=== PATIENT | male | born 1975 | race Caucasian/White ===

== ENCOUNTER 2018-03-28 12:09 | Inpatient (IN) | payer MEDICAID ==
[~2018-03-28] VITALS: Ht 165.1 cm; Wt 86.2 kg
[2018-03-28 12:17] VITALS: BP 133/65
--- NOTE | 2018-03-28 12:36 | NUR ---
EKG DONE, OK FOR PT TO BE IN LOBBY FOR ROOM
[2018-03-28 13:27] LABS: ANION GAP 11.3 (8-16); CARBON DIOXIDE 24.7 mmol/L (21-32); CREATININE 0.8 mg/dL (0.7-1.3)
[2018-03-28 13:28] LABS: BASOPHILS # (AUTO) 0.1 K/uL (0.00-0.22); BASOPHILS % (AUTO) 1.1 % (0.0-2.0); EOSINOPHILS # (AUTO) 0.1 K/uL (0-0.4); EOSINOPHILS % (AUTO) 1.8 % (0.0-4.0); LYMPHOCYTES # (AUTO) 1.9 K/uL (2.0-11.5); MEAN CORPUSCULAR HEMOGLOBIN 23 pg (27-31); MEAN CORPUSCULAR HGB CONC 32 g/dL (33-37); MEAN CORPUSCULAR VOLUME 72.4 fL (80-94); MONOCYTES # (AUTO) 0.9 K/uL (0.8-1.0); NEUTROPHILS # (AUTO) 3.3 K/uL (1.8-7.7); NEUTROPHILS % (AUTO) 53.1 % (42.2-75.2); PLATELET COUNT (AUTO) 108 K/uL (140-450); RED BLOOD CELL COUNT(AUTO) 1.91 MIL/uL (4.20-6.10); RED CELL DISTRIBUTION WIDTH 23.9 % (11.6-13.7)
--- NOTE | 2018-03-28 13:40 | NUR ---
PT. CAME INTO THE ED W C/O DIAHRRHEA X 3 DAYS, AND SUDDEN ONSET OF CHEST PAIN TODAY UPON WALKING THAT CEASED WHEN HE GOT TO THE HOSPITAL. PT. IS AAOX4, RR EVEN AND UNLABORED. DENIES N/V/D. DENIES SOB, DENIES CHEST PAIN AT THIS TIME.PT. STATES DIAHRRHEA X 3 DAYS. NO PAIN AT THIS TIME,PT. ON MONITOR. DENIES ALLERGIES. ER MD NOTIFIED. WILL CONTINUE TO MONITOR.
[2018-03-28 13:42] LABS: PROTHROMBIN TIME 13.3 secs (10.8-13.4)
--- NOTE | 2018-03-28 13:50 | NUR ---
LAB CALLED , SPOKE TO RANJIT Middleton WHO REPORTED CRITICAL LAB OF HEMOGLOBIN 4.[address] CHRISTOPHER NOTIFIED. AWAITING ORDERS.
[2018-03-28 13:53] LABS: HEMATOCRIT 13.8 % (36-52); HEMOGLOBIN 4.4 g/dL (12.0-18.0); WHITE BLOOD COUNT (AUTO) 6.2 K/uL (4.8-10.8)
[2018-03-28 14:41] LABS: APPEARANCE,URINE CLEAR (CLEAR); BILIRUBIN,URINE NEGATIVE (NEGATIVE); BLOOD, URINE 1+ (NEGATIVE); COLOR,URINE YELLOW (YELLOW); LEUKOCYTE ESTERASE ,URINE NEGATIVE (NEGATIVE); NITRITE, URINE NEGATIVE (NEGATIVE); UGLUCOSE NEGATIVE (NEGATIVE)
[2018-03-28 14:50] LABS: RBC,URINE 3-10 (FEW) /HPF (0-5); WBC,URINE 0-5 (RARE) /HPF (0-5)
[2018-03-28 14:54] LABS: BARBITURATE, URINE NEG. ng/ml (NEG <=200); BENZODIAZEPINE, URINE NEG. ng/mL (NEG <=200); CANNABINOID, URINE NEG. ng/mL (NEG <=50); COCAINE, URINE NEG. ng/mL (NEG <=300); OPIATE, URINE NEG. ng/mL (NEG <=2000); PHENCYCLIDINE SCREEN,URINE NEG. ng/mL (NEG <=25)
[2018-03-28] MEDS ORDERED: DOCUSATE SODIUM 100 MG GELCAP PO PRN (14:55)
[2018-03-28] MEDS ORDERED: ACETAMINOPHEN 325 MG TAB PO PRN (14:55)
[2018-03-28] MEDS ORDERED: ONDANSETRON 4 MG/2 ML VIAL IM/IVP PRN (14:55)
[2018-03-28] MEDS ORDERED: HYDROcodone/APAP 7.5/325 MG 1 TAB PO PRN (14:55)
--- NOTE | 2018-03-28 14:57 | NUR ---
PT. IN BED RESTING COMFORTABLY, RR EVEN AND UNLABORED. WILL CONTINUE TO MONITOR.
[2018-03-28] MEDS: NACL 0.9% 1,000 ML IV SCH ×2 (15:30→23:37)
--- NOTE | 2018-03-28 15:30 | NUR ---
PT IS AWAKE AND LYING ON THE BED, STARTED ON NACL AT 80ML/HR. NO SIGN OF DISTRESS NOTED AND WILL CONTINUE TO MONITOR.
[2018-03-28 15:35] VITALS: BP 112/54
--- NOTE | 2018-03-28 15:35 | NUR ---
Patient will be admitted to care of DR. GUTIERREZ . Admited to MED SURG . Will go to room 112B . Belongings list completed. Report to MARIA ISABEL DENNY .
--- NOTE | 2018-03-28 15:35 | NUR ---
RECEIVED PT VIA WHEELCHAIR, FROM ER NURSE, KELLY, PT IS AWAKE, ALERT, ORIENTEDX4 WITH AN IV SALINE LOCK ON THE RT AC G.18, INTACT. MRSA SWAB DONE AND VITAL SIGNS TAKEN AND IS STABLE. SIDE RAILS ARE UP AND CALL LIGHT WITHIN REACH. CARE PLAN DISCUSSED AND PT VERBALIZED UNDERSTANDING. SKIN IS INTACT. NO SIGN OF DISTRESS NOTED. WILL CONTINUE TO MONITOR.
[2018-03-28 15:54] LABS: CHOL/HDL RATIO 1.8 (1-4.5); MAGNESIUM 1.5 mg/dL (1.8-2.4); PHOSPHORUS 4.2 mg/dL (2.5-4.9); THYROID STIMULATING HORMONE 1.73 uIU/mL (0.34-3.74)
[2018-03-28] MEDS ORDERED: LORazepam 1 MG TAB PO SCH (16:00)
[2018-03-28] MEDS ORDERED: MAG SULF 2000 MG/WATER PREMIX 50 ML IV SCH (16:00)
[2018-03-28] MEDS ORDERED: MULTIVITAMIN-12 10 ML, THIAMINE 100 MG, FOLIC ACID 5 MG in NACL 0.9% 1,000 ML IV SCH (16:00)
[2018-03-28] MEDS ORDERED: RIFAXIMIN 550 MG TAB PO SCH (16:15)
[2018-03-28] MEDS: SODIUM FERRIC GLUCONATE 125 MG in NACL 0.9% 100 ML IV SCH (16:49)
--- NOTE | 2018-03-28 16:49 | NUR ---
PT IS AWAKE AND LYING ON THE BED, MEDICATION STARTED VIA IVPB, PT TOLERATED IT AND NO SIGN OF DISTRESS NOTED. WILL CONTINUE TO MONITOR.
--- NOTE | 2018-03-28 17:35 | NUR ---
PT IS AWAKE AND MEDICATIONS GIVEN VIA IV LINE AT LEFT HAND G. 22, INTACT AND INFUSING WELL. NO SIGN OF DISTRESS NOTED AND WILL CONTINUE TO MONITOR.
--- NOTE | 2018-03-28 18:42 | NUR ---
PT IS AWAKE AND LYING ON THE BED, INITIAL VITAL SIGNS TAKEN PRIOR TO STARTING TRANSFUSION, AND IS STABLE. WILL CONTINUE TO MONITOR.
--- NOTE | 2018-03-28 19:10 | NUR ---
PT IS AWAKE AND BLOOD TRANSFUSION HAD STARTED ALREADY, FIRST 15 MINS VITAL SIGNS TAKEN AND IS STABLE. NO SIGN OF DISTRESS NOTED ON THE PT. PT VERBALIZED THAT HE DOES NOT HAVE ANY PAIN. WILL CONTINUE TO MONITOR.
--- NOTE | 2018-03-28 19:40 | NUR ---
ENDORSED PT TO MASSIMO SHIFT NURSEFRANK FOR CONTINUITY OF CARE. PT HAS STILL A BLOOD TRANSFUSION ON GOING BUT NO SIGN OF DISTRESS NOTED. PT IS STABLE AT THIS TIME.
[2018-03-28 20:25] VITALS: BP 113/76
--- NOTE | 2018-03-28 20:50 | NUR ---
SEEN PT AWAKE, ALERT AND ORIENTED TAIWANESE-SPEAKING ONLY. FAMILY AT BEDSIDE. INITIAL ASSESSMENT DONE. BLOOD TRANSFUSION #1 INFUSING. VITAL SIGNS CHECKED. TEMP=99.9 EXTRA BLANKET REMOVED. WILL GIVE TYLENOL. PT DENIES ANY PAIN OR DISCOMFORT. SAFETY ENSURED. CALL LIGHT W/IN REACH. WILL CONTINUE TO MONITOR.
[2018-03-28] MEDS: RIFAXIMIN 550 MG TAB PO SCH (20:51)
[2018-03-28] MEDS: LORazepam 1 MG TAB PO SCH (20:51)
--- NOTE | 2018-03-28 22:40 | NUR ---
FIRST UNIT OF PRBC FINISHED. VITAL SIGNS CHECKED. PT DENIES ANY ADVERSE REACTIONS LIKE SHORTNESS OF BREATH, ITCHING, CHEST PAIN, ABDOMINAL PAIN, ETC.
--- NOTE | 2018-03-28 23:07 | NUR ---
VITAL SIGNS CHECKED AND WITHIN NORMAL. SECOND UNIT OF PRBC CHECKED AND VERIFIED W/ ANOTHER NURSE.
--- NOTE | 2018-03-28 23:40 | NUR ---
SIDE RAILS PADDED FOR SEIZURE PRECAUTION. PT DENIES ANY ADVERSE REACTIONS. BLOOD INFUSING WELL. WILL CHECK VITAL SIGNS PER PROTOCOL.
--- NOTE | 2018-03-29 01:35 | NUR ---
PT SLEEPING SOUNDLY. SECOND UNIT OF BLOOD FINISHED. VITAL SIGNS CHECKED. NO ADVERSE REACTIONS OBSERVED. WILL CONTINUE TO MONITOR.
[2018-03-29 04:45] VITALS: BP 113/62
--- NOTE | 2018-03-29 04:45 | NUR ---
SEEN PT AWAKE. VITAL SIGNS CHECKED. PT DENIES ANY DISCOMFORT. SAFETY ENSURED.
[2018-03-29] MEDS: LORazepam 1 MG TAB PO SCH ×3 (04:50→20:21)
--- NOTE | 2018-03-29 05:30 | NUR ---
REPORT ENDORSED TO GRACE FOR CONTINUITY OF CARE.
--- NOTE | 2018-03-29 05:31 | NUR ---
RECEIVED REPORT FROM FLOWER NICOLAS FOR CONTINUITY OF CARE. PT IN STABLE CONDITION
[2018-03-29 06:19] LABS: HEPATITIS A ANTIBODY IGM Negative (Negative); HEPATITIS B CORE AB TOTAL Negative (Negative); HEPATITIS B SURFACE ANTIBODY Non Reactive (.); HEPATITIS B SURFACE ANTIGEN Negative (Negative)
[2018-03-29] MEDS: DEXT 5% / NACL 0.9% 500 ML IV SCH ×3 (07:10→20:07)
[2018-03-29 07:28] LABS: BASOPHILS % (AUTO) 0.8 % (0.0-2.0); EOSINOPHILS # (AUTO) 0.1 K/uL (0-0.4); EOSINOPHILS % (AUTO) 2.4 % (0.0-4.0); LYMPHOCYTES # (AUTO) 1.7 K/uL (2.0-11.5); LYMPHOCYTES % (AUTO) 31.8 % (20.5-51.1); MEAN CORPUSCULAR HEMOGLOBIN 25 pg (27-31); MEAN CORPUSCULAR HGB CONC 33 g/dL (33-37); MEAN CORPUSCULAR VOLUME 75.5 fL (80-94); MONOCYTES # (AUTO) 0.5 K/uL (0.8-1.0); PLATELET COUNT (AUTO) 105 K/uL (140-450); RED BLOOD CELL COUNT(AUTO) 2.44 MIL/uL (4.20-6.10); RED CELL DISTRIBUTION WIDTH 23.4 % (11.6-13.7); WHITE BLOOD COUNT (AUTO) 5.4 K/uL (4.8-10.8)
--- NOTE | 2018-03-29 07:28 | NUR ---
RECEIVED REPORT FROM NIGHTSHIFT NURSE AT BEDSIDE. PATIENT ASLEEP AT THIS TIME BUT AROUSABLE. PATIENT IS A BENGALI SPEAKER ONLY. PATIENT ALERT AND ORIENTED X3. NO DISTRESS NOTED. NO COMPLAINTS OF PAIN. PATIENT HAS AN IV NOTED ON HIS LEFT HAND 22G WITH NORMAL SALINE INFUSING AT 80 ML/HR. PATIENT HAS A LEFT AC 22G AND RIGHT AC 18G BOTH SALINE LOCK. UPDATED BOARD IN PATIENT'S ROOM. PUT CALL LIGHT WITHIN REACH OF PATIENT. LOWERED BED TO LOWEST SETTING. WILL CONTINUE TO MONITOR PATIENT.
--- NOTE | 2018-03-29 07:28 | NUR ---
REPORT GIVEN TO DAY NURSE FOR CONTINUITY OF CARE, PT IN STABLE CONDITION
[2018-03-29 07:33] LABS: ANION GAP 11.1 (8-16); CARBON DIOXIDE 23.6 mmol/L (21-32); CREATININE 0.7 mg/dL (0.7-1.3); POTASSIUM 3.7 mmol/L (3.5-5.1)
[2018-03-29 07:39] LABS: MAGNESIUM 1.7 mg/dL (1.8-2.4); PHOSPHORUS 3.6 mg/dL (2.5-4.9)
[2018-03-29 07:43] LABS: HEMATOCRIT 18.4 % (36-52)
[2018-03-29] MEDS: FOLIC ACID 1 MG TAB PO SCH (08:23)
[2018-03-29] MEDS: THIAMINE 100 MG TAB PO SCH (08:23)
[2018-03-29] MEDS: MULTIVITAMIN 1 TAB PO SCH (08:23)
[2018-03-29] MEDS: RIFAXIMIN 550 MG TAB PO SCH ×2 (08:24→20:20)
--- NOTE | 2018-03-29 08:24 | NUR ---
PATIENT TOOK AM MEDICATIONS. PATIENT TOLERATED WELL. WILL CONTINUE TO MONITOR PATIENT.
--- NOTE | 2018-03-29 08:27 | NUR ---
SWAPPED PATIENT'S IV BAG WITH 500 ML D5 NACL AT 80 ML/HR.
--- NOTE | 2018-03-29 08:50 | NUR ---
PATIENT UNDERSTANDS THAT HE CANNOT EAT. PATIENT IS PLACED ON NPO DIET.
--- NOTE | 2018-03-29 08:50 | NUR ---
PATIENT HAS BEEN SCREENED AND CATEGORIZED MODERATE NUTRITION RISK. PATIENT WILL BE SEEN WITHIN 3-5 DAYS OF ADMISSION. 03/31/18 04/02/[address]
[2018-03-29 09:16] LABS: T4 (THYROXINE) 6.4 ug/dL (4.5-12.0)
--- NOTE | 2018-03-29 10:10 | NUR ---
PATIENT RESTING IN BED. NO DISTRESS NOTED. WILL CONTINUE TO MONITOR PATIENT.
--- NOTE | 2018-03-29 10:58 | NUR ---
REPORTED LAB VALUES CALCIUM, MAGNESIUM, AND AMMONIA TO DR. KWOK. AWAITING ORDERS.
[2018-03-29] MEDS ORDERED: MAG SULF 2000 MG/WATER PREMIX 100 ML IV SCH (11:31)
--- NOTE | 2018-03-29 11:32 | NUR ---
USED QUALITY OFFICER DEBBIE TO EXPLAIN PATIENT'S PROCEDURE OF EGD DUE FOR TOMORROW. PATIENT INSPECTOR INSULATION #[id number].
[2018-03-29 12:34] LABS: FOLIC ACID 15.5 ng/mL (>3.0)
--- NOTE | 2018-03-29 12:59 | NUR ---
PATIENT RESTING AT THIS TIME. NO DISTRESS NOTED. WILL CONTINUE TO MONITOR PATIENT.
--- NOTE | 2018-03-29 14:20 | NUR ---
PATIENT RESTING AT THIS TIME. NO DISTRESS NOTED. WILL CONTINUE TO MONITOR PATIENT.
[2018-03-29 16:00] VITALS: BP 111/51
--- NOTE | 2018-03-29 16:30 | NUR ---
PATIENT RESTING. FAMILY AT BEDSIDE. NO DISTRESS NOTED. WILL CONTINUE TO MONITOR PATIENT.
[2018-03-29] MEDS ORDERED: MAG SULF 2000 MG/WATER PREMIX 50 ML IV SCH (17:00)
[2018-03-29] MEDS: SODIUM FERRIC GLUCONATE 125 MG in NACL 0.9% 100 ML IV SCH (18:22)
--- NOTE | 2018-03-29 19:15 | NUR ---
GAVE REPORT TO NIGHTSHIFT NURSE AT BEDSIDE. PATIENT IN STABLE CONDITION.
--- NOTE | 2018-03-29 19:15 | NUR ---
RECEIVED PT AWAKE, AAOX4, LATVIAN SPEAKING ONLY, VITAL SIGNS STABLE, DENIES PAIN OR SOB, FERRLICIT INFUSING WELL VIA LFT HAND IV SITE AND MAG-RIDER INFUSING VIA LFT AC IV SITE, INSTRUCTED NPO AFTER MIDNIGHT FOR EGD TOMORROW, SAFETY MEASURES IN PLACE, CALL LIGHT WITHIN REACH.
[2018-03-29] MEDS: LACTULOSE 20 GM/30 ML UDC PO SCH (20:21)
--- NOTE | 2018-03-29 20:30 | NUR ---
DUE MEDS TAKEN, ALL NEEDS ATTENDED.
--- NOTE | 2018-03-29 23:25 | NUR ---
PT AMBULATED TO BR, BM WITH WATERY BROWNISH STOOL, SPECIMEN SENT TO LAB TO R/O C-DIFF, VITAL SIGNS STABLE, DENIES ANY PAIN, REINFORCE NPO AFTER MIDNIGHT FOR EGD TOMORROW AT 0700, IVF INFUSING WELL, CONTINUE TO MONITOR CLOSELY.
[2018-03-30] VITALS: BP 114/60
[2018-03-30] MEDS: DEXT 5% / NACL 0.9% 500 ML IV SCH (03:50)
--- NOTE | 2018-03-30 03:50 | NUR ---
PT WENT TO BR AND HAD WATERY STOOL, DENIES ANY PAIN, IVF INFUSING WELL, MAINTAIN ON NPO, MONITORED CLOSELY.
[2018-03-30] MEDS: LORazepam 1 MG TAB PO SCH ×3 (04:56→22:02)
--- NOTE | 2018-03-30 06:20 | NUR ---
PT AWAKE, VITAL SIGNS STABLE:BP-127/69, HR-78, SAT-99%, RR-20, TEMP-98.4, AM AND ORAL CARE DONE, AM LABS DRAWN, MAINTAIN ON NPO, IVF INFUSING WELL, MONITORED CLOSELY.
[2018-03-30] MEDS ORDERED: MIDAZOLAM 2 MG/2 ML VIAL ONE ×2 (06:47)
[2018-03-30] MEDS ORDERED: fentaNYL 0.05 MG/ML VIAL ONE (06:47)
[2018-03-30] MEDS ORDERED: diphenhydrAMINE 50 MG/ML VIAL ONE (06:47)
--- NOTE | 2018-03-30 06:48 | NUR ---
OR TRANSPORT HERE TO DENTAL NURSE PT FOR EGD, TRANSPORTED TO OR VIA BED IN STABLE CONDITION.
--- NOTE | 2018-03-30 07:12 | NUR ---
PT IN OR AT THIS TIME, REPORT GIVEN TO MARIA ISABEL DENNY FOR CONTINUITY OF CARE.
--- NOTE | 2018-03-30 07:15 | NUR ---
PT IS OUT OF THE ROOM AND WAS TAKEN BY THE OR NURSES FOR A EGD PROCEDURE. PT'S REPORT RECEIVED FROM CAST IRON DRAIN PIPE LAYER NURSE, MOE. WILL ASSESSED PT WHEN BACK TO ROOM.
[2018-03-30] MEDS ORDERED: MIDAZOLAM 2 MG/2 ML VIAL IVP ONE (07:25)
[2018-03-30] MEDS ORDERED: fentaNYL 0.05 MG/ML VIAL IVP ONE (07:25)
[2018-03-30 07:35] LABS: ANION GAP 13.8 (8-16); CARBON DIOXIDE 24.6 mmol/L (21-32); CREATININE 0.8 mg/dL (0.7-1.3); POTASSIUM 3.4 mmol/L (3.5-5.1)
--- NOTE | 2018-03-30 07:37 | NUR ---
PT IS BACK TO HIS ROOM ENDORSED BY NEHA, OR NURSE, PT CAME FROM [facility]. VITAL SIGNS TAKEN AND IS STABLE, SIDE RAILS ARE UP AND CALL LIGHT WITHIN REACH. PT HAS AN IV LINE ON RT AC G. 18, INTACT AND 2 MORE IV LINES ON THE LEFT AC G. 22 AND LEFT HAND G. 22, INTACT. NO SIGN OF DISTRESS NOTED AND WILL CONTINUE TO MONITOR.
[2018-03-30 07:41] LABS: BASOPHILS # (AUTO) 0.1 K/uL (0.00-0.22); BASOPHILS % (AUTO) 1.1 % (0.0-2.0); EOSINOPHILS # (AUTO) 0.2 K/uL (0-0.4); EOSINOPHILS % (AUTO) 2.1 % (0.0-4.0); LYMPHOCYTES # (AUTO) 2.4 K/uL (2.0-11.5); LYMPHOCYTES % (AUTO) 31.9 % (20.5-51.1); MAGNESIUM 1.8 mg/dL (1.8-2.4); MEAN CORPUSCULAR HEMOGLOBIN 24 pg (27-31); MEAN CORPUSCULAR HGB CONC 32 g/dL (33-37); MEAN CORPUSCULAR VOLUME 75.7 fL (80-94); MONOCYTES # (AUTO) 0.9 K/uL (0.8-1.0); MONOCYTES % (AUTO) 11.4 % (1.7-9.3); NEUTROPHILS % (AUTO) 53.5 % (42.2-75.2); PHOSPHORUS 3.4 mg/dL (2.5-4.9); PLATELET COUNT (AUTO) 120 K/uL (140-450); RED BLOOD CELL COUNT(AUTO) 2.48 MIL/uL (4.20-6.10); RED CELL DISTRIBUTION WIDTH 23.3 % (11.6-13.7); WHITE BLOOD COUNT (AUTO) 7.4 K/uL (4.8-10.8)
[2018-03-30 08:00] VITALS: BP 120/72
[2018-03-30 08:14] LABS: HEMOGLOBIN 6.1 g/dL (12.0-18.0)
[2018-03-30 08:15] LABS: HEMATOCRIT 18.8 % (36-52)
--- NOTE | 2018-03-30 08:15 | NUR ---
RECEIVED A CRITICAL LAB RESULT FROM RANJIT, PT'S HGB IS 6.1 AND HCT IS 18.8. ACKNOWLEDGED AND WILL INFORM THE MD.
--- NOTE | 2018-03-30 08:20 | NUR ---
INFORM DR. STEPHEN OF THE PT'S CRITICAL LAB VALUE FOR THE HGB WHICH IS 6.1 AND HCT IS [address] DR. STEPHEN ACKNOWLEDGED AND SAID THAT HE WILL PUT AN ORDER.
--- NOTE | 2018-03-30 09:50 | NUR ---
PT IS AWAKE AND MEDICATIONS GIVEN AND PT TOLERATED IT. NO SIGN OF DISTRESS NOTED AND WILL CONTINUE TO MONITOR.
[2018-03-30] MEDS: RIFAXIMIN 550 MG TAB PO SCH (09:51)
[2018-03-30] MEDS: FOLIC ACID 1 MG TAB PO SCH (09:51)
[2018-03-30] MEDS: THIAMINE 100 MG TAB PO SCH (09:51)
[2018-03-30] MEDS: MULTIVITAMIN 1 TAB PO SCH (09:51)
[2018-03-30] MEDS: LACTULOSE 20 GM/30 ML UDC PO SCH ×2 (09:52→22:03)
[2018-03-30] MEDS ORDERED: POTASSIUM CHLORIDE 10 MEQ TABER PO SCH (12:00)
[2018-03-30] MEDS ORDERED: AMOXICILLIN 500 MG CAP PO SCH (12:00)
[2018-03-30] MEDS ORDERED: CLARITHROMYCIN 500 MG TAB PO SCH (12:00)
--- NOTE | 2018-03-30 12:10 | NUR ---
PT IS AWAKE AND SEATED ON THE BED, MEDICATIONS GIVEN AND PT TOLERATED IT. NOM SIGN OF DISTRESS NOTED. WILL CONTINUE TO MONITOR.
--- NOTE | 2018-03-30 12:15 | NUR ---
PT IS AWAKE AND LUNCH WAS SERVED AND MEDICATIONS GIVEN AND PT TOLERATED IT. NO SIGN OF DISTRESS NOTED AND WILL CONTINUE TO MONITOR.
--- NOTE | 2018-03-30 13:14 | NUR ---
PT IS AWAKE AND SEATED ON THE BED, MEDICATIONS GIVEN AND VITAL SIGNS TAKEN AND IS STABLE. PT TOLERATED THE MEDICATION AND NO SIGN OF DISTRESS NOTED. WILL MONITOR.
--- NOTE | 2018-03-30 15:14 | NUR ---
BLOD TRANSFUSION WAS STARTED, VITAL SIGNS TAKEN, PT'S BP IS 108/61, PULSE IS 84, RESPIRATION IS 18 AND PT VERBALIZED NO PAIN. NO SIGN OF DISTRESS NOTED ON THE PT. WILL CONTINUE TO MOITOR.
--- NOTE | 2018-03-30 15:34 | NUR ---
PT IS AWAKE AND ON THE BEDSIDE, BLOOD TRANSFUSION STILL GOING AND THE SECOND 15 MINS VITAL SIGNS TAKEN, BP IS 117/61, PULSE IS 81, RESPIRATION IS 20 AND TEMP IS 98.9. PT VERBALIZED NO PAIN AND NO SIGN OF DISTRESS NOTED. WILL CONTINUE TO MONITOR.
--- NOTE | 2018-03-30 15:59 | NUR ---
PT IS AWAKE AND SEATED ON THE BED, WITH BLOOD TRANSFUSION STILL GOING ON. VITAL SIGNS TAKEN AND BP IS 108/53, PULSE IS 82, RESPIRATION IS 18 AND TEMP IS 98.1 AND PT VERBALIZED THAT HE HAS NO PAIN. NO SIGN OF DISTRESS NOTED AND WILL CONTINUE TO MONITOR.
[2018-03-30 16:00] VITALS: BP 109/53
--- NOTE | 2018-03-30 18:45 | NUR ---
BLOOD TRANSFUSION OF THE FIRST UNIT OF BLOOD WAS FINISHED. PT IS AWAKE AND NO SIGN OF DISTRESS NOTED, VITAL SIGNS STABLE AND PT VERBALIZED NO PAIN. WILL FACILITATE TRANSFUSION OF THE SECOND UNIT OF BLOD.
[2018-03-30] MEDS: PANTOPRAZOLE 40 MG TABEC PO SCH (19:11)
--- NOTE | 2018-03-30 19:19 | NUR ---
STARTED ON THE SECOND UNIT OF BLOOD, VITAL SIGNS TAKEN AND IS STABLE, PT VERBALIZED NO PAIN AND NO SIGN OF DISTRESS NOTED. WILL ENDORSE TO [employer] SPECIAL EDUCATION TEACHER NURSE FOR MONITORING.
--- NOTE | 2018-03-30 19:25 | NUR ---
ENDORSED PT TO HOSPICE CASE MANAGER NURSE, MOE,FOR CONTINUITY OF CARE. PT HAS AN ON GOING TRANSFUSION AND IS STABLE AT THIS TIME.
--- NOTE | 2018-03-30 19:26 | NUR ---
RECEIVED PT AWAKE, AAOX4, DENIES ANY PAIN, 2ND UNIT PRBC JUST STARTED, VITAL SIGNS STABLE, MONITOR FOR REACTION, DENIES ANY PAIN, SAFETY MEASURES IN PLACE, CALL LIGHT WITHIN REACH.
--- NOTE | 2018-03-30 22:00 | NUR ---
2ND UNIT PRBC DONE, VITAL SIGNS STABLE, NO SIGNS OF REACTION NOTED, DUE MEDS TAKEN WITH EDUCATION PROVIDED, FERRLECIT IVPB ADMINISTERED, MONITORED CLOSELY.
[2018-03-30] MEDS: AMOXICILLIN 500 MG CAP PO SCH (22:02)
[2018-03-30] MEDS: CLARITHROMYCIN 500 MG TAB PO SCH (22:03)
[2018-03-30] MEDS: SODIUM FERRIC GLUCONATE 125 MG in NACL 0.9% 100 ML IV SCH (22:03)
--- NOTE | 2018-03-30 23:30 | NUR ---
PT AWAKE USING HIS CELLPHONE, VITAL SIGNS STABLE, DENIES ANY PAIN, CONTINUE TO MONITOR CLOSELY.
[2018-03-31] VITALS: BP 118/68
--- NOTE | 2018-03-31 04:50 | NUR ---
DUE ATIVAN PO ADMINISTERED, DENIES ANY PAIN, MONITORED CLOSELY.
[2018-03-31] MEDS: LORazepam 1 MG TAB PO SCH (04:52)
[2018-03-31] MEDS: PANTOPRAZOLE 40 MG TABEC PO SCH (06:31)
--- NOTE | 2018-03-31 06:38 | NUR ---
PT AWAKE WATCHING A MOVIE ON HIS CELLPHONE, DUE PROTONIX PO GIVEN WITH EDUCATION PROVIDED, DENIES PAIN, NO LOOSE BM THE WHOLE SHIFT, MONITORED CLOSELY.
--- NOTE | 2018-03-31 07:15 | NUR ---
PT AWAKE, NO SIGNS OF DISTRESS, REPORT GIVEN TO RN ERENDIRA FOR CONTINUITY OF CARE.
--- NOTE | 2018-03-31 07:16 | NUR ---
RECEIVED BEDSIDE REPORT FROM RISK LEAD NURSE. PATIENT IS AWAKE, ALERT AND ORIENTEDX4. LISTENING TO MUSIC ON HIS PHONE. NO SIGNS OF DISTRESS ON ROOM AIR. NO COMPLAINTS AT THIS TIME. HE IS AMBULATORY. SKIN IS INTACT. IV ON R FA 20G SALINE LOCK. IV IS CLEAN, DRY AND INTACT. SEIZURE PRECAUTIONS IN PLACE FOR ETOH. BED IN LOW POSITION. CALL LIGHT WITHIN REACH. WILL CONTINUE TO MONITOR THE PATIENT.
[2018-03-31 07:41] LABS: BASOPHILS # (AUTO) 0.1 K/uL (0.00-0.22); BASOPHILS % (AUTO) 0.8 % (0.0-2.0); EOSINOPHILS # (AUTO) 0.2 K/uL (0-0.4); EOSINOPHILS % (AUTO) 3.2 % (0.0-4.0); HEMATOCRIT 22.1 % (36-52); HEMOGLOBIN 7.3 g/dL (12.0-18.0); LYMPHOCYTES # (AUTO) 2.2 K/uL (2.0-11.5); LYMPHOCYTES % (AUTO) 29.9 % (20.5-51.1); MEAN CORPUSCULAR HEMOGLOBIN 26 pg (27-31); MEAN CORPUSCULAR HGB CONC 33 g/dL (33-37); MONOCYTES # (AUTO) 0.9 K/uL (0.8-1.0); MONOCYTES % (AUTO) 11.8 % (1.7-9.3); NEUTROPHILS % (AUTO) 54.3 % (42.2-75.2); PLATELET COUNT (AUTO) 120 K/uL (140-450); RED BLOOD CELL COUNT(AUTO) 2.84 MIL/uL (4.20-6.10); RED CELL DISTRIBUTION WIDTH 21.6 % (11.6-13.7); WHITE BLOOD COUNT (AUTO) 7.4 K/uL (4.8-10.8)
[2018-03-31 07:55] VITALS: BP 101/70
[2018-03-31 08:48] LABS: ANION GAP 9.5 (8-16); CARBON DIOXIDE 24.3 mmol/L (21-32); CREATININE 0.8 mg/dL (0.7-1.3); POTASSIUM 3.8 mmol/L (3.5-5.1)
[2018-03-31] MEDS: LACTULOSE 20 GM/30 ML UDC PO SCH (09:15)
[2018-03-31] MEDS: MULTIVITAMIN 1 TAB PO SCH (09:17)
[2018-03-31] MEDS: FOLIC ACID 1 MG TAB PO SCH (09:17)
[2018-03-31] MEDS: CLARITHROMYCIN 500 MG TAB PO SCH (09:17)
[2018-03-31] MEDS: AMOXICILLIN 500 MG CAP PO SCH (09:17)
[2018-03-31] MEDS: THIAMINE 100 MG TAB PO SCH (09:17)
--- NOTE | 2018-03-31 09:19 | NUR ---
ADMINISTERED MEDS. PATIENT TOLERATED WELL. BED IN LOW POSITION, CALL LIGHT WITHIN REACH. WILL CONTINUE TO MONITOR THE PATIENT.
--- NOTE | 2018-03-31 11:02 | NUR ---
PATIENT SITTING AT BEDSIDE WATCHING TV. NO SIGNS OF DISTRESS. EXPLAINED TO HIM THAT I WILL BE WORKING ON HIS DISCHARGE. HE SAID HE WILL LOOK FOR A RIDE. WILL CONTINUE TO MONITOR THE PATIENT.
[2018-03-31] MEDS ORDERED: MULT-405 PO (11:10)
[2018-03-31] MEDS ORDERED: PANT40EC28 PO (11:10)
[2018-03-31] MEDS ORDERED: LACT10SO11 PO (11:10)
[2018-03-31] MEDS ORDERED: AMOX500C25 PO (11:10)
[2018-03-31] MEDS ORDERED: CLAR500T PO (11:10)
[2018-03-31] MEDS ORDERED: FERR325E14 PO (11:11)
[2018-03-31] MEDS ORDERED: PNEUMOCOCCAL VACCINE 23 MCG/0.5 ML VIAL IMVAC SCH (12:00)
--- NOTE | 2018-03-31 13:05 | NUR ---
EDUCATED PATIENT ON DISEASE PROCESS, TO STOP ETOH, ABN S/SX AND WHEN TO GO TO THE NEAREST ER, EDUCATED ON MEDS, PRESCRIPTIONS GIVEN. EDUCATED ON TO BE CAUTIOUS WITH STRENUOUS ACTIVITY. EDUCATED ON THE IMPORTANCE ON TAKING MEDS ORDERED AND TO SEE PCP WITHIN 2-3DAYS. MARCIE NICOLAS HELPED TRANSLATE IN SUDANESE. PATIENT VERBALIZED UNDERSTANDING. ID BANDS ARE REMOVED. PNA VACCINE GIVEN AND EDUCATED ON. IV REMOVED, TIP OF IV WAS INTACT. ALL PAPERWORK SIGNED. PATIENT WALKED OUT TO THE LOBBY IN STABLE CONDITION.
== END 2018-03-31 13:05 | disposition home or self-care (01) | DRG 280 ==
LOC: MED 12:09 → EDBEDREQSVC 14:45 → MTU 14:54
PROVIDERS: ADMIT General Practice; ATTEND General Practice
PROC: 30233N1 Transfusion of Nonautologous Red Blood Cells into Peripheral Vein, Percutaneous Approach (ICD-10-PCS; 2018-03-28)
PROC: 0DB68ZX Excision of Stomach, Via Natural or Artificial Opening Endoscopic, Diagnostic (ICD-10-PCS; principal; 2018-03-30 07:00)
PROC: 3E0234Z Introduction of Serum, Toxoid and Vaccine into Muscle, Percutaneous Approach (ICD-10-PCS; 2018-03-31)
DX: K70.30 Alcoholic cirrhosis of liver without ascites (principal); E43 Unspecified severe protein-calorie malnutrition; K27.4 Chronic or unspecified peptic ulcer, site unspecified, with hemorrhage; Q39.4 Esophageal web; D69.6 Thrombocytopenia, unspecified; K72.90 Hepatic failure, unspecified without coma; F10.239 Alcohol dependence with withdrawal, unspecified; R01.1 Cardiac murmur, unspecified; R74.0 Nonspecific elevation of levels of transaminase and lactic acid dehydrogenase [LDH]; D50.9 Iron deficiency anemia, unspecified; Z72.89 Other problems related to lifestyle; Z68.31 Body mass index [BMI] 31.0-31.9, adult; Z23 Encounter for immunization
CPT/HCPCS: 36415; 71045; 76700; 80048; 80053; 80305; 81001; 82140; 82272; 82607; 82728; 82746; 83036; 83540; 83615; 83690; 83735; 83880; 84100; 84436; 84443; 84479; 84484; 85025; 85045; 85610; 85730; 86677; 86704; 86706; 86708; 86709; 86803; 86886; 86900; 86901; 86920; 87045; 87070; 87081; 87340; 88305; 88312; 88313; 89055; 90732; 93005; 99285; A9153; G0482; J1200; J2250; J2916; J3010; J3411; J3475; J3490; J7030; J7042; P9016; Q0092; Q0163

== ENCOUNTER 2019-03-15 06:00 | Emergency (ER) | payer MEDICAID ==
[~2019-03-15] VITALS: Ht 167.6 cm; Wt 81.6 kg
[~2019-03-15 06:00] MED LIST: AMOX500C25 PO; CLAR500T PO; FERR325E14 PO; LACT10SO11 PO; MULT-405 PO; PANT40EC28 PO
[2019-03-15 06:04] VITALS: BP 137/82
--- NOTE | 2019-03-15 06:07 | NUR ---
BIBA REPORTING LEFT ANTERIOR WALL CHEST PAIN 6/10 X TWO HOURS. DENIES ANY MEDICAL HISTORY. 12 LEAD IN FEILD NSR. VSS UPON ARRIVAL. PATIENT STATES NO FEVER, SOB, OR RADIATING PAIN. ADMITS TO ETOH USE, UNKNOWN AMOUNT INGESTED. NO OTHER SYMPTOMS REPORTED AT THIS TIME. ERMD AWARE.
[2019-03-15] MEDS ORDERED: KETOROLAC 30 MG/ML VIAL IVP ONE (06:20)
[2019-03-15] MEDS ORDERED: NACL 0.9% 500 ML IV ONE (06:20)
[2019-03-15 06:32] LABS: BASOPHILS # (AUTO) 0.1 K/uL (0.00-0.22); BASOPHILS % (AUTO) 0.9 % (0.0-2.0); EOSINOPHILS # (AUTO) 0.2 K/uL (0-0.4); EOSINOPHILS % (AUTO) 2.8 % (0.0-4.0); HEMOGLOBIN 12.3 g/dL (12.0-18.0); LYMPHOCYTES # (AUTO) 2.7 K/uL (2.0-11.5); MEAN CORPUSCULAR HEMOGLOBIN 33 pg (27-31); MEAN CORPUSCULAR HGB CONC 34 g/dL (33-37); MEAN CORPUSCULAR VOLUME 95.4 fL (80-94); MONOCYTES # (AUTO) 0.5 K/uL (0.8-1.0); MONOCYTES % (AUTO) 7.9 % (1.7-9.3); NEUTROPHILS # (AUTO) 2.8 K/uL (1.8-7.7); NEUTROPHILS % (AUTO) 45.4 % (42.2-75.2); PLATELET COUNT (AUTO) 50 K/uL (140-450); RED BLOOD CELL COUNT(AUTO) 3.78 MIL/uL (4.20-6.10); RED CELL DISTRIBUTION WIDTH 15.9 % (11.6-13.7); WHITE BLOOD COUNT (AUTO) 6.2 K/uL (4.8-10.8)
[2019-03-15 06:39] LABS: ANION GAP 9.9 (8-16); CARBON DIOXIDE 28.2 mmol/L (21-32); CREATININE 0.6 mg/dL (0.7-1.3); POTASSIUM 3.1 mmol/L (3.5-5.1)
[2019-03-15 06:47] LABS: ALBUMIN 2.2 g/dL (3.4-5.0); PROTHROMBIN TIME 13.8 secs (10.8-13.4); TOTAL BILIRUBIN 2.9 mg/dL (0.0-1.0)
--- NOTE | 2019-03-15 07:07 | NUR ---
REPORT GIVEN TO DAY SHIFT FOR CONTINUED CARE.
[2019-03-15] MEDS ORDERED: NACL 0.9% 1,000 ML IV ONE (07:55)
--- NOTE | 2019-03-15 10:16 | NUR ---
Patient discharged with v/s stable. Written and verbal after care instructions given and explained. Patient verbalized understanding. Ambulatory with steady gait. All questions addressed prior to discharge. Advised to follow up with PMD.
[2019-03-15 10:29] VITALS: BP 122/73
--- NOTE | 2019-03-19 13:07 | NUR ---
Late entry. Confirmed with RN that 1000 ml 0.9 NS IV completed at 0920.
== END 2019-03-15 10:15 | disposition home or self-care (01) ==
LOC: MED 06:00
DX: R07.89 Other chest pain (principal); F10.129 Alcohol abuse with intoxication, unspecified; Y90.8 Blood alcohol level of 240 mg/100 ml or more; Z79.2 Long term (current) use of antibiotics; Z79.899 Other long term (current) drug therapy
CPT/HCPCS: 36415; 71045; 80053; 84484; 85025; 85610; 85730; 96374; 99284; G0482; J1885; J7030; Q0092; 93005

== ENCOUNTER 2019-04-14 18:20 | Emergency (ER) | payer MEDICAID ==
[~2019-04-14] VITALS: Ht 170.2 cm; Wt 113.4 kg
[2019-04-14 18:25] VITALS: BP 120/64
--- NOTE | 2019-04-14 19:03 | NUR ---
PT BIBA FOUND SLEEPING BEHIND DUMPSTER , PT ADMITS TO DRINKING BEER TODAY UNKNOWN AMOUNT. PER PT STATES NOT FELING WELL TODAY. NO TREMORS NOTED. PT ABLE TO TELL HIS NAME, NOT AWARE OF THE DATE . AOX2. NO FEVER AT THIS TIME. PT CONNECTED TO THE MONITOR. ANTONY MCCARTHY TO SEE THE PT. WILL CONTINUE TO MONITOR PT.
[2019-04-14] MEDS ORDERED: NACL 0.9% 1,000 ML IV ONE (19:35)
[2019-04-14 20:24] LABS: BASOPHILS # (AUTO) 0.1 K/uL (0.00-0.22); BASOPHILS % (AUTO) 1.3 % (0.0-2.0); EOSINOPHILS # (AUTO) 0.1 K/uL (0-0.4); EOSINOPHILS % (AUTO) 2.6 % (0.0-4.0); HEMATOCRIT 30.2 % (36-52); HEMOGLOBIN 10.3 g/dL (12.0-18.0); LYMPHOCYTES # (AUTO) 1.6 K/uL (2.0-11.5); LYMPHOCYTES % (AUTO) 38.1 % (20.5-51.1); MEAN CORPUSCULAR HEMOGLOBIN 34 pg (27-31); MEAN CORPUSCULAR HGB CONC 34 g/dL (33-37); MEAN CORPUSCULAR VOLUME 100.9 fL (80-94); MONOCYTES # (AUTO) 0.7 K/uL (0.8-1.0); MONOCYTES % (AUTO) 16.9 % (1.7-9.3); NEUTROPHILS # (AUTO) 1.8 K/uL (1.8-7.7); NEUTROPHILS % (AUTO) 41.1 % (42.2-75.2); RED BLOOD CELL COUNT(AUTO) 2.99 MIL/uL (4.20-6.10); RED CELL DISTRIBUTION WIDTH 19.5 % (11.6-13.7); WHITE BLOOD COUNT (AUTO) 4.3 K/uL (4.8-10.8)
--- NOTE | 2019-04-14 20:30 | NUR ---
CHECKED ON THE PT. SLEEPING COMFORTABLY IN HIS BED. IVF 1 L NACL BOLUS PROBVIDED. VS NORMAL AT THIS TIME. PT STILL UNDER ALCOHOL INFLUENCE. UNABLE TO COMMUNICATE PROPERLY.WILL CONTINUE TO MONITOR.
[2019-04-14 20:39] LABS: ANION GAP 9.6 (8-16); CARBON DIOXIDE 26.5 mmol/L (21-32); CREATININE 0.7 mg/dL (0.7-1.3); POTASSIUM 3.1 mmol/L (3.5-5.1)
[2019-04-14 20:46] LABS: ALBUMIN 1.8 g/dL (3.4-5.0); TOTAL BILIRUBIN 1.6 mg/dL (0.0-1.0)
[2019-04-14 20:52] LABS: PLATELET COUNT (AUTO) 49 K/uL (140-450)
--- NOTE | 2019-04-14 21:26 | NUR ---
PT SLEEPING COMFORTABLY IN BED WITH VSS ON ROOM AIR. SKIN PINK, WARM, DRY. BREATHING EVEN, UNLABORED.
--- NOTE | 2019-04-14 21:35 | NUR ---
REPORT FROM MARIA ISABEL NÚÑEZ. TRANSFER OF CARE AT THIS TIME.
--- NOTE | 2019-04-14 22:19 | NUR ---
PT SLEEPING COMFORTABLY IN BED WITH VSS ON ROOM AIR. SKIN PINK, WARM, DRY. BREATHING EVEN, UNLABORED.
--- NOTE | 2019-04-14 23:27 | NUR ---
PT SLEEPING COMFORTABLY IN BED WITH VSS ON ROOM AIR. SKIN PINK, WARM, DRY. BREATHING EVEN, UNLABORED.
--- NOTE | 2019-04-15 00:30 | NUR ---
PT AMBULATORY TO BATHROOM EVEN STEADY GAIT, NO ASSISTANCE.
[2019-04-15 00:48] VITALS: BP 112/61
== END 2019-04-15 00:43 | disposition home or self-care (01) ==
LOC: MED 18:20
DX: F10.129 Alcohol abuse with intoxication, unspecified (principal); Z79.899 Other long term (current) drug therapy; Y90.8 Blood alcohol level of 240 mg/100 ml or more
CPT/HCPCS: 36415; 80053; 85025; 99283; G0482; J7030

== ENCOUNTER 2019-05-03 10:37 | Emergency (ER) | payer MEDICAID ==
[~2019-05-03] VITALS: Ht 170.2 cm; Wt 81.6 kg
--- NOTE | 2019-05-03 10:38 | NUR ---
Patient BIBA BLS, transferred to bed 9. RN evaluating patient at bedside.
[2019-05-03 10:40] VITALS: BP 141/73
--- NOTE | 2019-05-03 10:45 | NUR ---
BIBA WITH C/O STERNAL CHEST PAIN RADIATING TO BACK, PER [facility] PT WAS FOUND ON THE STREET WITH FRIENDS WHO REPORTED THAT HE'S BEEN DRINKING AND HE PASSED OUT. PATIENT ASLEEP, OPEN EYES WHEN CALLING HIS NAME, RESPONSE TO TACTILE STIMULI, SPEAKS NICARAGUAN ONLY ABLE TO SAY NAME, UNABLE TO PROVIDE HISTORY, NO FACIAL GRIMICING NOTED, RR EVEN AND UNLABORED, S1, S2 PRESENT, IN NO ACUTE DISTRESS, ED MD DR. BIANCHI MADE AWARE, BED IN LOWEST POSITION, WILL CONTINUE TO MONITOR CLOSELY.
[2019-05-03] MEDS ORDERED: NACL 0.9% 1,000 ML IV ONE (11:00)
[2019-05-03] MEDS ORDERED: ONDANSETRON 4 MG/2 ML VIAL IVP ONE (11:00)
[2019-05-03 11:39] LABS: BASOPHILS # (AUTO) 0.1 K/uL (0.00-0.22); BASOPHILS % (AUTO) 2.6 % (0.0-2.0); EOSINOPHILS # (AUTO) 0.1 K/uL (0-0.4); EOSINOPHILS % (AUTO) 2.5 % (0.0-4.0); HEMATOCRIT 32.5 % (36-52); LYMPHOCYTES # (AUTO) 1.4 K/uL (2.0-11.5); MEAN CORPUSCULAR HEMOGLOBIN 34 pg (27-31); MEAN CORPUSCULAR HGB CONC 34 g/dL (33-37); MEAN CORPUSCULAR VOLUME 99.8 fL (80-94); MONOCYTES # (AUTO) 0.5 K/uL (0.8-1.0); MONOCYTES % (AUTO) 11.3 % (1.7-9.3); NEUTROPHILS # (AUTO) 2.2 K/uL (1.8-7.7); NEUTROPHILS % (AUTO) 50.6 % (42.2-75.2); PLATELET COUNT (AUTO) 35 K/uL (140-450); RED BLOOD CELL COUNT(AUTO) 3.25 MIL/uL (4.20-6.10); RED CELL DISTRIBUTION WIDTH 17.9 % (11.6-13.7); WHITE BLOOD COUNT (AUTO) 4.3 K/uL (4.8-10.8)
[2019-05-03 11:51] LABS: ANION GAP 9.2 (8-16); CREATININE 0.7 mg/dL (0.7-1.3); POTASSIUM 3.2 mmol/L (3.5-5.1)
[2019-05-03 12:02] LABS: ALBUMIN 1.8 g/dL (3.4-5.0); TOTAL BILIRUBIN 2.9 mg/dL (0.0-1.0)
--- NOTE | 2019-05-03 12:33 | NUR ---
PATIENT RESTING IN BED, VVS, WILL CONTINUE TO MONITOR CLOSELY.
--- NOTE | 2019-05-03 14:03 | NUR ---
PATIENT RESTING IN BED, RESPONSIVE TO VERBAL AND TACTILE STIMULI, VSS, RR EVEN UNLABORED, IN NO ACUTE DISTRESS, WILL CONTINUE TO MONITOR CLOSELY.
--- NOTE | 2019-05-03 16:00 | NUR ---
PT IN BED ASLEEP, RESPONSIVE TO VERBAL AND TACTILE STIMULI, VSS, RR EVEN UNLABORED, WILL CONTINUE TO MONITOR CLOSELY.
[2019-05-03 17:30] VITALS: BP 122/71
== END 2019-05-03 17:30 | disposition home or self-care (01) ==
LOC: MED 10:37
DX: F10.129 Alcohol abuse with intoxication, unspecified (principal); R07.89 Other chest pain; Z79.899 Other long term (current) drug therapy; Z79.2 Long term (current) use of antibiotics
CPT/HCPCS: 36415; 71045; 80053; 84484; 85025; 93005; 96374; 99284; G0482; J2405; J7030; Q0092

== ENCOUNTER 2019-05-10 13:35 | Emergency (ER) | payer MEDICAID ==
[~2019-05-10] VITALS: Ht 162.6 cm; Wt 84.4 kg
[2019-05-10 14:10] VITALS: BP 134/80
--- NOTE | 2019-05-10 14:18 | NUR ---
PT TO WAIT IN ER LOBBY. VSS
--- NOTE | 2019-05-10 15:23 | NUR ---
AMBULATORY TO ER BED 12.
--- NOTE | 2019-05-10 15:30 | NUR ---
PT PRESENTED TO ED, C/O LEFT HAND PAIN SINCE LAST NIGHT. PT STATED "A SPIDER BIT ME", NOTED SWELLING TO LEFT HAND, WARM TO TOUCH. C/O PAIN 10/10 ON MOVEMENT, RADIAL PULSE PRESENT, WITH <3SEC CAP REFILL, PT SMELLED ETOH, ADMIT OF HAVING 3 CANS OF BEER TODAY. AAO TO NAME, PLACE AND LOCATION, RR EVEN AND UNLABORED. ED MD DR. TREVIÑO MADE AWARE. WILL CONTINUE TO MONITOR CLOSELY. BED IN LOWEST POSITION.
--- NOTE | 2019-05-10 17:00 | NUR ---
PT IN BED RESTING, VS STABLE.
[2019-05-10] MEDS ORDERED: KETOROLAC 60 MG/2 ML VIAL IM ONE (17:35)
[2019-05-10 18:00] VITALS: BP 136/78
--- NOTE | 2019-05-10 18:00 | NUR ---
Patient discharged with v/s stable. Written and verbal after care instructions given and explained. Patient alert, oriented and verbalized understanding of instructions. Ambulatory with steady gait. All questions addressed prior to discharge. ID band removed. Patient advised to follow up with PMD. Rx of MOTRIN 800MG AND KEFLEX 500MG given. Patient educated on indication of medication including possible reaction and side effects. Opportunity to ask questions provided and answered.
== END 2019-05-10 18:00 | disposition home or self-care (01) ==
LOC: MED 13:35
DX: L03.114 Cellulitis of left upper limb (principal); Z79.899 Other long term (current) drug therapy
CPT/HCPCS: 96374; 99283; J1885

== ENCOUNTER 2019-05-16 12:18 | Inpatient (IN) | payer MEDICAID ==
[~2019-05-16] VITALS: Ht 167.6 cm; Wt 81.6 kg
--- NOTE | 2019-05-16 12:18 | NUR ---
PATIENT BIBA TO BED 3 AT THIS TIME
--- NOTE | 2019-05-16 12:18 | NUR ---
[facility] C/O LEFT HAND PAIN & SWELLING X 6DAYS. PT STATES THAT IT IS A "SPIDER BITE". LEFT HAND SWELLING, WARM TO TOUCH, +CMS TO LEFT HAND. PT DENIES FEVER, N/V/D, SOB. ER TO EVALUATE PT.
[2019-05-16 12:23] VITALS: BP 122/75
--- NOTE | 2019-05-16 13:33 | NUR ---
DR OWEN AT BEDSIDE FOR PT EVALUATION
--- NOTE | 2019-05-16 13:55 | NUR ---
LAB AT BEDSIDE
[2019-05-16 13:58] LABS: BASOPHILS # (AUTO) 0.1 K/uL (0.00-0.22); BASOPHILS % (AUTO) 3.2 % (0.0-2.0); EOSINOPHILS # (AUTO) 0.1 K/uL (0-0.4); HEMOGLOBIN 9.8 g/dL (12.0-18.0); LYMPHOCYTES # (AUTO) 1.3 K/uL (2.0-11.5); LYMPHOCYTES % (AUTO) 33.6 % (20.5-51.1); MEAN CORPUSCULAR HEMOGLOBIN 34 pg (27-31); MEAN CORPUSCULAR HGB CONC 34 g/dL (33-37); MEAN CORPUSCULAR VOLUME 101.6 fL (80-94); MONOCYTES # (AUTO) 0.4 K/uL (0.8-1.0); MONOCYTES % (AUTO) 10.4 % (1.7-9.3); NEUTROPHILS % (AUTO) 49.8 % (42.2-75.2); RED BLOOD CELL COUNT(AUTO) 2.85 MIL/uL (4.20-6.10); RED CELL DISTRIBUTION WIDTH 16.9 % (11.6-13.7)
[2019-05-16 14:17] LABS: PROTHROMBIN TIME 14.4 secs (10.8-13.4)
[2019-05-16 14:18] LABS: PLATELET COUNT (AUTO) 41 K/uL (140-450)
[2019-05-16 14:19] LABS: ALBUMIN 1.7 g/dL (3.4-5.0); ANION GAP 7.5 (8-16); CARBON DIOXIDE 29.7 mmol/L (21-32); CREATININE 0.8 mg/dL (0.7-1.3); POTASSIUM 3.2 mmol/L (3.5-5.1); TOTAL BILIRUBIN 3.2 mg/dL (0.0-1.0)
[2019-05-16 14:50] VITALS: BP 111/67
[2019-05-16] MEDS ORDERED: ACETAMINOPHEN 325 MG TAB PO PRN (14:50)
[2019-05-16] MEDS ORDERED: DOCUSATE SODIUM 100 MG GELCAP PO PRN (14:50)
[2019-05-16] MEDS ORDERED: MORPHINE SULFATE 2 MG/ML SYR IVP PRN (14:50)
[2019-05-16] MEDS ORDERED: ONDANSETRON 4 MG/2 ML VIAL IM/IVP PRN (14:50)
--- NOTE | 2019-05-16 14:50 | NUR ---
RECEIVED PATIENT FROM ER, PATIENT RESTING IN BED, AMBULATED TO BED FROM [facility], NO SIGNS OF DISTRESS ON 2L O2 NC. RECEIVING 1L NORMAL SALINE BOLUS TO LEFT AC 20 GAUGE IV CATHETER. ORIENTED PATIENT TO ROOM AND CALL LIGHT. SAFETY PRECAUTIONS IN PLACE, CALL LIGHT IN REACH. PATIENT IS HUNGRY AND THIRSTY. PATIENT IS CURRENTLY NPO. EDUCATED PATIENT THAT HE CANNOT TAKE AND FOOD OR DRINK AT THIS TIME. WILL FOLLOW UP WITH MD FOR DIETARY ORDERS. Addendum: 05/16/19 at 1843 by Suzanne Byrnes RN CORRECT TIME 1550
--- NOTE | 2019-05-16 14:57 | NUR ---
PT ASLEEP, SNORING. O2 DESATURATION NOTED 88% O2 SAT RA. PT AWOKEN BY TOUCH, O2 SAT WENT BACK UP TO 96%. PT WENT BACK TO SLEEP AND O2 DESATURATION NOTED AGAIN TO 88%. INITIATED O2 3LPM VIA NASAL CANNULA. DR OWEN MADE AWARE.
[2019-05-16] MEDS ORDERED: ceFAZolin 1,000 MG VIAL ONE (15:13)
[2019-05-16] MEDS: NACL 0.9% 1,000 ML IV SCH ×2 (15:33→18:27)
[2019-05-16] MEDS ORDERED: LACTOBACILLUS RHAMNOSUS GG 1 EACH CAP PO SCH (15:36)
[2019-05-16 15:50] VITALS: BP 111/67
--- NOTE | 2019-05-16 15:50 | NUR ---
Patient will be admitted to care of DR GUTIERREZ. Admited to TELE. Will go to room 106 B. Belongings list completed. Report to MARIA ISABEL PEDRO.
--- NOTE | 2019-05-16 15:50 | NUR ---
RECEIVED PATIENT FROM ER, PATIENT RESTING IN BED, AMBULATED TO BED FROM [facility], NO SIGNS OF DISTRESS ON 2L O2 NC. RECEIVING 1L NORMAL SALINE BOLUS TO LEFT AC 20 GAUGE IV CATHETER. ORIENTED PATIENT TO ROOM AND CALL LIGHT. SAFETY PRECAUTIONS IN PLACE, CALL LIGHT IN REACH. PATIENT IS HUNGRY AND THIRSTY. PATIENT IS CURRENTLY NPO. EDUCATED PATIENT THAT HE CANNOT TAKE AND FOOD OR DRINK AT THIS TIME. WILL FOLLOW UP WITH MD FOR DIETARY ORDERS
--- NOTE | 2019-05-16 15:51 | NUR ---
ER NURSE STATES THAT PATIENT SPO2 FALLS WHEN HE SLEEPS.
[2019-05-16] MEDS ORDERED: POTASSIUM CHLORIDE 10 MEQ TABER PO SCH (16:00)
[2019-05-16 16:03] LABS: CHOL/HDL RATIO 2.4 (1-4.5); FREE T4 (FREE THYROXINE) 1.25 ng/dL (0.76-1.46); MAGNESIUM 1.1 mg/dL (1.8-2.4); PHOSPHORUS 4.2 mg/dL (2.5-4.9); THYROID STIMULATING HORMONE 2.35 uIU/mL (0.34-3.74)
[2019-05-16] MEDS ORDERED: LACTULOSE 20 GM/30 ML UDC PO SCH (16:09)
[2019-05-16] MEDS ORDERED: MAGNESIUM OXIDE 400 MG TAB PO SCH (16:30)
[2019-05-16] MEDS ORDERED: MAG SULF 2000 MG/WATER PREMIX 100 ML IV SCH (16:30)
--- NOTE | 2019-05-16 17:09 | NUR ---
ENDORSED PATIENT IN STABLE CONDITION TO POLISHING MACHINE TENDER RNLUDWIN. MRSA SWAB DONE, ENDORSING ALL OTHER ADMISSIONT RELATED TASKS TO POLISHING MACHINE TENDER RN.
--- NOTE | 2019-05-16 17:10 | NUR ---
RECEIVED BEDSIDE REPORT FROM DAY SHIFT NURSE. PATIENT IS AWAKE, ALERT, AND COOPERATIVE. RESPIRATION EVEN UNLABORED ON ROOM AIR. DENIES PAIN. SKIN IS WARM AND DRY. LEFT HAND CELLULITIS NOTED. IV PATENT AND INTACT. PLAN OF CARE WAS DISCUSSED. ALL SAFETY MEASURES IN PLACE. BED IS AT LOW POSITION. CALL LIGHT WITHIN REACH AND VERBALIZES ITS USE. WILL CONTINUE TO MONITOR.
--- NOTE | 2019-05-16 17:30 | NUR ---
PATIENT IS IVORIAN SPEAKING ONLY USED [employer] TO OBTAINED PAST MEDICAL HISTORY. BEREAVEMENT COUNSELOR # [id number].
[2019-05-16] MEDS ORDERED: LORazepam 2 MG/ML VIAL IM/IVP PRN (17:40)
--- NOTE | 2019-05-16 17:48 | NUR ---
PATIENT OBSERVED WITH PERIOD OF SLEEP APNEA X 1 MIN SATURATION 97% ON SUPPLEMENTAL OXYGEN AT 2 LPM VIA NC WITH DESCENDING SATURATION DURING SLEEP APNEA PERIOD TO 81% REVIEWED ASSESSMENT WITH DR. PEDRITO RUBY MD TO ORDER BIPAP 07/14 R14 28% KEEPING SATURATION GREATER THAN 92% PULMONARY CONSULT IN AM
--- NOTE | 2019-05-16 18:30 | NUR ---
ADMINISTERED 2 BAGS OF MAG SULF PER ORDER. WILL CONTINUE TO MONITOR.
--- NOTE | 2019-05-16 19:10 | NUR ---
PATIENT EATING MEAL AT THIS TIME. WILL RETURN AT LATER TIME TO ADMINISTER SCHEDULED BREATHING TREATMENT. NO RESPIRATORY DISTRESS NOTED AT THIS TIME.
[2019-05-16] MEDS: ALBUTEROL SULFATE/IPRATROPIU 3 ML SOL IH SCH (20:22)
[2019-05-16] MEDS: LACTULOSE 20 GM/30 ML UDC PO SCH (20:32)
--- NOTE | 2019-05-16 20:32 | NUR ---
RECEIVED PATIENT ON 2L NASAL CANNULA, PULSE OX SAT 97%. SCHEDULED BREATHING TREATMENT ADMINISTERED. TOLERATED TX WELL WITHOUT SIDE EFFECTS. PLACED PATIENT BACK ON 2L NC. NO RESPIRATORY DISTRESS NOTED AT THIS TIME. WILL CONTINUE TO MONITOR.
[2019-05-16] MEDS: LORazepam 1 MG TAB PO SCH (20:33)
[2019-05-16] MEDS: CLINDAMYCIN 900 MG in DEXTROSE 5% 100 ML IV SCH (20:33)
--- NOTE | 2019-05-16 20:33 | NUR ---
ALL SCHEDULED MEDS WERE GIVEN PER ORDER. NO ASE NOTED. WILL CONTINUE TO MONITOR.
[2019-05-16 21:00] VITALS: BP 129/65
--- NOTE | 2019-05-16 22:00 | NUR ---
PATIENT SLEEPING RESPIRATION EVEN UNLABORED ON BIPAP. NO DISTRESS NOTED. WILL CONTINUE TO MONITOR.
[2019-05-17] VITALS: BP 121/65
--- NOTE | 2019-05-17 | NUR ---
VITALS WERE TAKEN. PATIENT IN STABLE CONDITION. NO DISTRESS NOTED. WILL CONTINUE TO MONITOR.
--- NOTE | 2019-05-17 02:00 | NUR ---
CHECKED PATIENT. PATIENT SLEEPING RESPIRATION EVEN UNLABORED ON BIPAP. NO DISTRESS NOTED. WILL CONTINUE TO MONITOR.
[2019-05-17 04:00] VITALS: BP 141/78
--- NOTE | 2019-05-17 04:00 | NUR ---
VITALS WERE TAKEN. PATIENT IN STABLE CONDITION. NO DISTRESS NOTED. WILL CONTINUE TO MONITOR.
--- NOTE | 2019-05-17 04:30 | NUR ---
FOUND PATIENT WITH A BLEEDING MOUTH. ASSESSED WITH CHARGE NURSE. FOUND LOOSE TOOTH. RINSE AND SUCTIONED PATIENT MOUTH. BLEEDING STOP. WILL CONTINUE TO MONITOR.
[2019-05-17] MEDS: LORazepam 1 MG TAB PO SCH ×3 (05:06→21:44)
[2019-05-17] MEDS: CLINDAMYCIN 900 MG in DEXTROSE 5% 100 ML IV SCH ×3 (05:07→21:45)
--- NOTE | 2019-05-17 06:48 | NUR ---
PATIENT SLEEPING. ALL DUE MEDS WERE GIVEN. VITALS WERE STABLE. NO DISTRESS NOTED. WILL CONTINUE TO MONITOR.
[2019-05-17 06:58] LABS: BASOPHILS # (AUTO) 0.1 K/uL (0.00-0.22); BASOPHILS % (AUTO) 1.5 % (0.0-2.0); EOSINOPHILS # (AUTO) 0.1 K/uL (0-0.4); EOSINOPHILS % (AUTO) 2.6 % (0.0-4.0); HEMATOCRIT 30.5 % (36-52); HEMOGLOBIN 10.2 g/dL (12.0-18.0); LYMPHOCYTES # (AUTO) 1.2 K/uL (2.0-11.5); LYMPHOCYTES % (AUTO) 29.2 % (20.5-51.1); MEAN CORPUSCULAR HEMOGLOBIN 34 pg (27-31); MEAN CORPUSCULAR HGB CONC 33 g/dL (33-37); MEAN CORPUSCULAR VOLUME 102.8 fL (80-94); MONOCYTES # (AUTO) 0.4 K/uL (0.8-1.0); MONOCYTES % (AUTO) 8.9 % (1.7-9.3); NEUTROPHILS # (AUTO) 2.3 K/uL (1.8-7.7); NEUTROPHILS % (AUTO) 57.8 % (42.2-75.2); PLATELET COUNT (AUTO) 41 K/uL (140-450); RED BLOOD CELL COUNT(AUTO) 2.97 MIL/uL (4.20-6.10)
[2019-05-17 07:04] LABS: CREATININE 0.8 mg/dL (0.7-1.3)
[2019-05-17 07:09] LABS: ANION GAP 10.6 (8-16); CARBON DIOXIDE 28.1 mmol/L (21-32); POTASSIUM 3.7 mmol/L (3.5-5.1)
[2019-05-17 07:13] LABS: MAGNESIUM 1.5 mg/dL (1.8-2.4); PHOSPHORUS 3.1 mg/dL (2.5-4.9)
--- NOTE | 2019-05-17 07:20 | NUR ---
ENDORSED PATIENT AT BEDSIDE TO BROOCH AND BRACELET MAKER NURSE FOR CONTINUITY OF CARE. PATIENT AWAKE AND SITTING UP ON BED. NO SIGNS OF DISTRESS NOTED. PATIENT IS IN STABLE CONDITION. SAFETY MEASURES IN PLACE. Addendum: 05/17/19 at 1943 by Lina Real RN WRONG TIME
--- NOTE | 2019-05-17 07:21 | NUR ---
ENDORSED PATIENT TO DAY SHIFT NURSE FOR CONTINUITY OF CARE. PATIENT IN STABLE CONDITION.
--- NOTE | 2019-05-17 07:23 | NUR ---
RECEIVED BEDSIDE REPORT FROM ORGANIZATION DEVELOPMENT CONSULTANT NURSE FOR CONTINUITY OF CARE. PATIENT IS SLEEPING ON BED WITH BIPAP ON. AROUSABLE TO VOICE. RESPIRATION EVEN AND UNLABORED. PATIENT IS AAOX4, SPEAKS SWISS AND ABLE TO UNDERSTAND MINIMAL [place], PATIENT IS ABLE TO FOLLOW COMMANDS AND MAKE NEEDS KNOWN. MOOD COOPERATIVE AND CLAM. PATIENT DENIED PAIN AND NAUSEA AND VOMITING AT THIS TIME. NO SIGNS OF DISTRESS NOTED. IV ON LAC 20G, CLEAN AND INTACT, INFUSING PER MD ORDER. CELLULITIS ON L HAND NOTED, WARM TO TOUCH,OPEN TO AIR, OTHER WEBER, SKIN CLEAN AND DRY. PATIENT IS ABLE TO AMBULATE WITH STANDBY ASSIST AND IS INCONTINENT. DISCUSSED PLAN OF CARE WITH PATIENT, PATIENT NODDED HIS HEAD. SAFETY MEASURES IN PLACE. BED IN LOW POSITION AND CALL LIGHT WITHIN REACH. INSTRUCTED PATIENT TO USE THE CALL LIGHT FOR ANY ASSISTANCE AND PATIENT NODDED HIS HEAD.
[2019-05-17] MEDS: ALBUTEROL SULFATE/IPRATROPIU 3 ML SOL IH SCH ×3 (07:45→18:44)
[2019-05-17 08:00] VITALS: BP 125/76
--- NOTE | 2019-05-17 08:02 | NUR ---
REMOVED FROM BIPAP TO MASK PLACED ON SUPPLEMENTAL OXYGEN AT 2 LPM VIA NC
[2019-05-17 08:17] LABS: FOLIC ACID 9.2 ng/mL (>3.0)
[2019-05-17] MEDS ORDERED: MAGNESIUM OXIDE 400 MG TAB PO SCH (08:30)
[2019-05-17] MEDS ORDERED: MAG SULF 2000 MG/WATER PREMIX 50 ML IV SCH (08:30)
--- NOTE | 2019-05-17 08:46 | NUR ---
PATIENT HAS BEEN SCREENED AND CATEGORIZED MODERATE NUTRITION RISK. PATIENT WILL BE SEEN WITHIN 3-5 DAYS OF ADMISSION. 05/19/19[address]
[2019-05-17] MEDS: THIAMINE 100 MG TAB PO SCH (09:32)
[2019-05-17] MEDS: LACTOBACILLUS RHAMNOSUS GG 1 EACH CAP PO SCH (09:32)
[2019-05-17] MEDS: FOLIC ACID 1 MG TAB PO SCH (09:32)
[2019-05-17] MEDS: MULTIVITAMIN 1 TAB PO SCH (09:33)
[2019-05-17] MEDS: LACTULOSE 20 GM/30 ML UDC PO SCH ×2 (09:33→21:43)
--- NOTE | 2019-05-17 09:41 | NUR ---
ADMINISTERED MEDS PER MD ORDER, PATIENT TOLERATED WELL. MEDS EDUCATION PROVIDED TO PATIENT AT BEDSIDE, PATIENT SAID OK. PT AWAKE AND RESTING ON BED. NO SIGNS OF DISTRESS NOTED. SAFETY MEASURES IN PLACE. TELE MONITOR ATTACHED. BED IN LOW POSITION AND CALL LIGHT WITHIN REACH. INSTRUCTED PATIENT TO USE THE CALL LIGHT FOR ANY ASSISTANCE AND PT WAS AWARE.
--- NOTE | 2019-05-17 11:18 | NUR ---
PATIENT AWAKE AND RESTING ON BED AT THIS TIME. RESPIRATION EVEN AND UNLABORED ON 2LPM VIA NC. DENIED PAIN AND DIZZINESS. NO SIGNS OF DISTRESS NOTED. BED IN LOW POSITION AND CALL LIGHT WITHIN REACH. TELE MONITOR ATTACHED. INSTRUCTED PATIENT TO USE THE CALL LIGHT FOR ANY ASSISTANCE AND PATIENT SAID OK.
[2019-05-17 12:00] VITALS: BP 114/70
--- NOTE | 2019-05-17 12:05 | NUR ---
AWAKE AND ALERT SUDANESE SPEAKING VERBALLY RESPONSIVE NO INDICATION OF RESPIRATORY DISTRESS NOTED GOOD CHEST RISE SATURATION 99% ON SUPPLEMENTAL OXYGEN AT 2 LPM VIA NC HR 106 RR 20
--- NOTE | 2019-05-17 12:40 | NUR ---
STARTED NEW IV ON R HAND 22 G, CLEAN AND INTACT, INFUSING PER MD ORDER. PATIENT IS RESTING ON BED AT THIS TIME. NO SIGNS OF DISTRESS NOTED. SAFETY MEASURES IN PLACE. BED IN LOW POSITION AND CALL LIGHT WITHIN REACH. TELE MONITOR ATTACHED.
--- NOTE | 2019-05-17 13:39 | NUR ---
ADMINISTERED MEDS PER MD ORDER, PATIENT TOLERATED WELL. PATIENT AWAKE AND WATCHING TV. RESPIRATION EVEN AND UNLABORED ON 2LPM VIA NC, SPO2 AT 94% AT THIS TIME. DENIED PAIN AND SOB. NO SIGNS OF DISTRESS NOTED. SAFETY MEASURES IN PLACE. TELE MONITOR ATTACHED. BED IN LOW POSITION AND CALL LIGHT WITHIN REACH. INSTRUCTED PATIENT TO USE THE CALL LIGHT FOR ANY ASSISTANCE AND PT VERNALIZED OK.
--- NOTE | 2019-05-17 15:20 | NUR ---
PATIENT RESTING ON BED AT THIS TIME. AROUSABLE TO VOICE. NO SIGNS OF DISTRESS NOTED. SAFETY MEASURES IN PLACE. BED IN LOW POSITION AND CALL LIGHT WITHIN REACH. INSTRUCTED PATIENT TO USE THE CALL LIGHT FOR ANY ASSISTANCE AND PATIENT WAS AWARE.
[2019-05-17 16:00] VITALS: BP 128/69
[2019-05-17] MEDS ORDERED: LACTULOSE 20 GM/30 ML UDC PO SCH (16:00)
--- NOTE | 2019-05-17 16:32 | NUR ---
ASLEEP EASILY AWAKENS NO EVIDENCE OF INTERMITTENT SLEEP APNEA AT THIS TIME BREATH SOUNDS CLEAR BILATERAL WITH GOOD CHEST RISE AND AERATION THROUGHOUT BILATERAL PULMONARY SWIFT SATURATION 98% ON SUPPLEMENTAL OXYGEN AT 2LPM VIA NC HR 86 RRR 20 CONTINUOS PULSE OXIMETER AT BEDSIDE ON AND FUNCTIONING WELL LOW SATURATION ALARM SET AT 92% BIPAP TO MASK REMAINS BESIDE FOR NOC USE
--- NOTE | 2019-05-17 17:28 | NUR ---
PATIENT AWAKE AND RESTING ON BED. DENIED PAIN. RESPIRATION EVEN AND UNLABORED ON 2LPM VIA NC. NO SIGNS OF DISTRESS NOTED. SAFETY MEASURES IN PLACE. BED IN LOW POSITION AND CALL LIGHT WITHIN REACH. TELE MONITOR ATTACHED. INSTRUCTED PATIENT TO USE THE CALL LIGHT FOR ANY ASSISTANCE AND PATIENT WAS AWARE.
--- NOTE | 2019-05-17 19:00 | NUR ---
RECEIVED BEDSIDE REPORT FROM DAY SHIFT NURSE. PATIENT IS AWAKE, ALERT, AND COOPERATIVE. RESPIRATION EVEN UNLABORED ON 2L O2 NC. NO DISTRESS NOTED. SKIN IS WARM AND DRY. LEFT HAND CELLULITIS NOTED. DENIES PAIN. PLAN OF CARE WAS DISCUSSED. ALL SAFETY MEASURES IN PLACE. BED IS AT LOW POSITION. CALL LIGHT WITHIN REACH AND VERBALIZES ITS USE. WILL CONTINUE TO MONITOR.
--- NOTE | 2019-05-17 19:20 | NUR ---
ENDORSED PATIENT AT BEDSIDE TO HOTEL GUEST SERVICE AGENT NURSE FOR CONTINUITY OF CARE. PATIENT AWAKE AND SITTING UP ON BED. NO SIGNS OF DISTRESS NOTED. PATIENT IS IN STABLE CONDITION. SAFETY MEASURES IN PLACE.
[2019-05-17 20:00] VITALS: BP 129/69
--- NOTE | 2019-05-17 20:00 | NUR ---
INITIAL ASSESSMENT DONE. VITALS WERE TAKEN. NO DISTRESS NOTED. WILL CONTINUE TO MONITOR.
--- NOTE | 2019-05-17 21:00 | NUR ---
ALL SCHEDULED MEDS WERE GIVEN PER ORDER. NO ASE NOTED. WILL CONTINUE TO MONITOR.
--- NOTE | 2019-05-17 23:00 | NUR ---
PATIENT SLEEPING RESPIRATION EVEN UNLABORED ON 2L O2 NC. NO DISTRESS NOTED. WILL CONTINUE TO MONITOR.
[2019-05-18] VITALS: BP 136/81
--- NOTE | 2019-05-18 | NUR ---
VITALS WERE TAKEN. PATIENT IN STABLE CONDITION. NO DISTRESS NOTED. WILL CONTINUE TO MONITOR.
[2019-05-18] MEDS: NACL 0.9% 1,000 ML IV SCH ×2 (00:08→16:37)
[2019-05-18] MEDS ORDERED: VANCOMYCIN PER PHARMACY MC PRN ×2 (00:40)
[2019-05-18] MEDS ORDERED: VANCOMYCIN 1GM/DEXT 5% PREMIX 200 ML IV SCH (01:00)
[2019-05-18] MEDS ORDERED: VANCOMYCIN 1,000 MG VIAL ONE (01:28)
--- NOTE | 2019-05-18 02:00 | NUR ---
CHECKED PATIENT. PATIENT SLEEPING RESPIRATION EVEN UNLABORED ON O2 2L NC. NO DISTRESS NOTED. WILL CONTINUE TO MONITOR.
[2019-05-18 04:00] VITALS: BP 134/60
--- NOTE | 2019-05-18 04:00 | NUR ---
VITALS WERE TAKEN. PATIENT CONDITION STABLE. PATIENT ACCIDENTALLY PULLED HIS IV. NO ACTIVE BLEEDING SEEN. INSERTED A NEW ONE RIGHT AC 20G. WILL CONTINUE TO MONITOR.
[2019-05-18] MEDS: PIPERACILLIN/TAZOBACTAM 3.375 GM in DEXTROSE 5% 50 ML IV SCH ×3 (04:43→20:47)
[2019-05-18] MEDS: LORazepam 1 MG TAB PO SCH ×3 (04:45→20:47)
[2019-05-18] MEDS ORDERED: PIPERACILLIN/TAZOBACTAM 3.375 GM VIAL IV ONE (04:52)
[2019-05-18] MEDS: ALBUTEROL SULFATE/IPRATROPIU 3 ML SOL IH SCH ×3 (07:00→19:06)
--- NOTE | 2019-05-18 07:11 | NUR ---
ENDORSED PATIENT TO DAY SHIFT NURSE FOR CONTINUITY OF CARE. PATIENT IN STABLE CONDITION
[2019-05-18 07:49] LABS: BASOPHILS # (AUTO) 0.1 K/uL (0.00-0.22); BASOPHILS % (AUTO) 1.3 % (0.0-2.0); EOSINOPHILS # (AUTO) 0.1 K/uL (0-0.4); EOSINOPHILS % (AUTO) 3.1 % (0.0-4.0); HEMOGLOBIN 10.2 g/dL (12.0-18.0); LYMPHOCYTES % (AUTO) 24.4 % (20.5-51.1); MEAN CORPUSCULAR HEMOGLOBIN 35 pg (27-31); MEAN CORPUSCULAR HGB CONC 34 g/dL (33-37); MEAN CORPUSCULAR VOLUME 102.6 fL (80-94); MONOCYTES # (AUTO) 0.4 K/uL (0.8-1.0); MONOCYTES % (AUTO) 9.6 % (1.7-9.3); NEUTROPHILS # (AUTO) 2.6 K/uL (1.8-7.7); NEUTROPHILS % (AUTO) 61.6 % (42.2-75.2); PLATELET COUNT (AUTO) 43 K/uL (140-450); RED BLOOD CELL COUNT(AUTO) 2.92 MIL/uL (4.20-6.10); RED CELL DISTRIBUTION WIDTH 17.1 % (11.6-13.7); WHITE BLOOD COUNT (AUTO) 4.1 K/uL (4.8-10.8)
--- NOTE | 2019-05-18 07:50 | NUR ---
RECEIVED BED SIDE REPORT FROM HYDROTHERAPIST RN. PT OFF BIPAP, ON RA IN NO RESP DISTRESS. RIGHT AC 20G NOT RUNNING ANY FLUIDS. WILL RESTART NS AT 60CC/HR PER MD ORDER. WILL TAKE OUT LEFT AC. LEFT HAND CELLULITIS STILL SWOLLEN, WARM, MARKED WITH A PEN, SEEMS TO BE GETTING BETTER. VS STABLE. WILL CONTINUE TO MONITOR.
[2019-05-18 07:54] LABS: ANION GAP 8.9 (8-16); CARBON DIOXIDE 27.6 mmol/L (21-32); CREATININE 0.8 mg/dL (0.7-1.3); POTASSIUM 3.5 mmol/L (3.5-5.1)
[2019-05-18 08:01] LABS: MAGNESIUM 1.1 mg/dL (1.8-2.4); PHOSPHORUS 2.6 mg/dL (2.5-4.9)
[2019-05-18] MEDS: LACTULOSE 20 GM/30 ML UDC PO SCH ×2 (09:10→16:59)
[2019-05-18] MEDS: LACTOBACILLUS RHAMNOSUS GG 1 EACH CAP PO SCH (09:11)
[2019-05-18] MEDS: MULTIVITAMIN 1 TAB PO SCH (09:11)
[2019-05-18] MEDS: THIAMINE 100 MG TAB PO SCH (09:11)
[2019-05-18] MEDS: FOLIC ACID 1 MG TAB PO SCH (09:12)
--- NOTE | 2019-05-18 09:19 | NUR ---
GAVE PT AM MEDS. TOOK OUT LEFT AC IV, NO BLEEDING NOTED. STARTED NS AT 60CC/HR.
[2019-05-18 10:33] VITALS: BP 125/71
--- NOTE | 2019-05-18 10:53 | NUR ---
PT NOW MS. TOOK OUT TELE MONITOR. NOTIFIED RESIDENT ABOUT MAG 1.1. WILL WAIT FOR ORDERS
[2019-05-18] MEDS: MAG SULF 2000 MG/WATER PREMIX 50 ML IV SCH ×2 (11:20→13:46)
[2019-05-18] MEDS ORDERED: MAGNESIUM OXIDE 400 MG TAB PO ONE (13:30)
[2019-05-18] MEDS ORDERED: MAG SULF 2000 MG/WATER PREMIX 100 ML IV ONE (13:30)
--- NOTE | 2019-05-18 14:16 | NUR ---
DISCHARGE PLANNING [facility] Patient: Malachi Knutsonito Juma : 1975 Age/Sex: 44/M Unit#: [id number] Room/Bed: 106/B User: Olive Wolf CM Date: 05/18/19 14:04 Type: CM: Governor Assembler Consult Admitted From: Home ER No OB No Advance Directive No Mental Health: No issues reported Substance Abuse: Pt admits to drinking beer daily Narrative Summary: 44 y/o male pt admitted for left hand cellulitis. Pt reported he thinks an insect bit him. Pt is independent with ambulation and ADLS. Pt denied any hx of mental illness, suicidal/homicidal ideation and/or psych hospitalizations. Pt stated he drinks beer daily however he doesn't think this is an issue. Pt has poor insight into the negative effects of drinking daily. Information Taught: Community Resources Person Taught: Patient Teaching Tools: Verbal Factors Affecting Learning: Lack of Motivation Participation Level: Passive Needs Additional Education: No Discipline: Case Mgt/Social Svcs Signature: JESENIA De León Date: May 18, 2019 Time: 14:14 Social Service Follow-up Notes: D/c plan to home. Pt has emergency medical and was provided with resources to follow-up at low-cost clinics. Pt declined any resources for substance abuse. No d/c needs identified. Pt to be d/c home with supportive family
--- NOTE | 2019-05-18 15:13 | NUR ---
PT SLEEPING, IN NO RESP DISTRESS. BREATHING TX DONE. 2NS BAG OF MAG SULFATE CURRENTLY RUNNING. ICE PACK APPLIED TO LEFT HAND. WILL CONTINUE TO MONITOR.
[2019-05-18 17:16] VITALS: BP 108/56
--- NOTE | 2019-05-18 18:06 | NUR ---
PT STILL SLEEPING. SENSOR OF SPO2 MACHINE NOT WORKING. NOTIFIED RT AND BIO MED. PT'S O2 WHEN SLEEPING IS 97%. PT OFF O2 AND STILL 97%. WILL CONTINUE TO MONITOR.
--- NOTE | 2019-05-18 19:23 | NUR ---
ENDORSED PT TO NUCLEAR CONTROL ROOM OPERATOR RN. PT STABLE.
--- NOTE | 2019-05-18 19:30 | NUR ---
RECEIVED PATIENT REPORT AT BEDSIDE. PATIENT IS AWAKE, ALERT AND ORIENTED. PT ON ROOM AIR. NO S/S OF DISTRESS. ERYTHEMA AND SWELLING NOTED ON THE LEFT HAND. NO C/O PAIN AT THIS TIME. BED LOWERED WITH CALL LIGHT WITHIN REACH. WILL CONTINUE TO MONITOR
[2019-05-18 20:00] VITALS: BP 108/60
[2019-05-18] MEDS: HYDROcodone/APAP 7.5/325 MG 1 TAB PO PRN (20:48)
[2019-05-18] MEDS ORDERED: MAGNESIUM OXIDE 400 MG TAB PO SCH (21:00)
[2019-05-19] VITALS: BP 107/54
--- NOTE | 2019-05-19 02:52 | NUR ---
PT ASLEEP IN BED. NO S/S OF DISTRESS NOTED
[2019-05-19 04:00] VITALS: BP 118/62
[2019-05-19] MEDS: PIPERACILLIN/TAZOBACTAM 3.375 GM in DEXTROSE 5% 50 ML IV SCH ×3 (04:23→20:26)
[2019-05-19] MEDS: LORazepam 1 MG TAB PO SCH ×3 (04:23→20:26)
[2019-05-19] MEDS: ALBUTEROL SULFATE/IPRATROPIU 3 ML SOL IH SCH ×3 (07:13→20:07)
--- NOTE | 2019-05-19 07:15 | NUR ---
RECEIVED BEDSIDE REPORT FROM MARIA ISABEL MELENDREZ. PT STABLE, AWAKE, ALERT AND ORIENTED X4. NO SIGNS OF DISTRESS NOTED. DENIES PAIN OR SOB. NO REDNESS, SWELLING, OR INFLAMMATION NOTED ON IV SITE. CALL RAMIREZ WITHIN REACH. BED IN LOWEST POSITION. SAFETY MEASURES IN PLACE. PLAN OF CARE REVIEWED.
[2019-05-19 08:00] VITALS: BP 120/70
[2019-05-19 08:30] LABS: BASOPHILS # (AUTO) 0.1 K/uL (0.00-0.22); BASOPHILS % (AUTO) 1.3 % (0.0-2.0); EOSINOPHILS # (AUTO) 0.2 K/uL (0-0.4); EOSINOPHILS % (AUTO) 3.3 % (0.0-4.0); HEMATOCRIT 29.8 % (36-52); HEMOGLOBIN 10.1 g/dL (12.0-18.0); LYMPHOCYTES # (AUTO) 1.4 K/uL (2.0-11.5); MEAN CORPUSCULAR HEMOGLOBIN 35 pg (27-31); MEAN CORPUSCULAR HGB CONC 34 g/dL (33-37); MEAN CORPUSCULAR VOLUME 103.6 fL (80-94); MONOCYTES # (AUTO) 0.5 K/uL (0.8-1.0); MONOCYTES % (AUTO) 9.7 % (1.7-9.3); NEUTROPHILS % (AUTO) 58.7 % (42.2-75.2); PLATELET COUNT (AUTO) 51 K/uL (140-450); RED BLOOD CELL COUNT(AUTO) 2.88 MIL/uL (4.20-6.10); RED CELL DISTRIBUTION WIDTH 17.3 % (11.6-13.7); WHITE BLOOD COUNT (AUTO) 5.1 K/uL (4.8-10.8)
[2019-05-19 09:00] LABS: ANION GAP 9.1 (8-16); CARBON DIOXIDE 25.7 mmol/L (21-32); CREATININE 0.8 mg/dL (0.7-1.3); POTASSIUM 3.8 mmol/L (3.5-5.1)
[2019-05-19 09:18] LABS: MAGNESIUM 1.5 mg/dL (1.8-2.4); PHOSPHORUS 2.9 mg/dL (2.5-4.9)
[2019-05-19] MEDS: NACL 0.9% 1,000 ML IV SCH ×2 (09:28→13:54)
[2019-05-19] MEDS: LACTOBACILLUS RHAMNOSUS GG 1 EACH CAP PO SCH (09:34)
[2019-05-19] MEDS: FOLIC ACID 1 MG TAB PO SCH (09:34)
[2019-05-19] MEDS: LACTULOSE 20 GM/30 ML UDC PO SCH ×3 (09:34→16:55)
[2019-05-19] MEDS: MULTIVITAMIN 1 TAB PO SCH (09:35)
[2019-05-19] MEDS: THIAMINE 100 MG TAB PO SCH (09:35)
--- NOTE | 2019-05-19 09:36 | NUR ---
ADMINISTERED SCHEDULED MEDICATIONS, PT TOLERATED WELL. WILL CONTINUE TO MONITOR.
[2019-05-19] MEDS ORDERED: MAG SULF 2000 MG/WATER PREMIX 100 ML IV SCH (11:40)
--- NOTE | 2019-05-19 11:52 | NUR ---
ADMINISTERED 1ST BAG OF SCHEDULED MAGNESIUM FOR MAGNESIUM LEVEL OF 1.5. PT TOLERATED WELL. WILL CONTINUE TO MONITOR.
--- NOTE | 2019-05-19 13:53 | NUR ---
CHANGED IVF BAG. ADMINISTERED SCHEDULED MEDICATIONS AND 2ND BAG OF MAGNESIUM PER MD ORDER. PT TOLERATED WELL. NO OTHER NEEDS AT THIS TIME.
[2019-05-19] MEDS: VANCOMYCIN 1,250 MG in DEXTROSE 5% 250 ML IV SCH (14:58)
--- NOTE | 2019-05-19 15:02 | NUR ---
URINE SAMPLE COLLECTED PER MD ORDER. VANCOMYCIN TROUGH 0.4L, ADMINISTERED SCHEDULED VANCOMYCIN. PT TOLERATED WELL. NO OTHER NEEDS AT THIS TIME.
[2019-05-19 15:59] LABS: BARBITURATE, URINE NEG. ng/ml (NEG <=200); BENZODIAZEPINE, URINE POS. ng/mL (NEG <=200); CANNABINOID, URINE NEG. ng/mL (NEG <=50); COCAINE, URINE NEG. ng/mL (NEG <=300); OPIATE, URINE POS. ng/mL (NEG <=2000); PHENCYCLIDINE SCREEN,URINE NEG. ng/mL (NEG <=25)
[2019-05-19 16:00] VITALS: BP 120/63
[2019-05-19 16:01] LABS: APPEARANCE,URINE HAZY (CLEAR); BILIRUBIN,URINE 3+ (NEGATIVE); BLOOD, URINE 3+ (NEGATIVE); COLOR,URINE ORANGE (YELLOW); LEUKOCYTE ESTERASE ,URINE TRACE (NEGATIVE); NITRITE, URINE POSITIVE (NEGATIVE); UGLUCOSE TRACE (NEGATIVE)
[2019-05-19 16:28] LABS: WBC,URINE 0-5 /HPF (0-5)
[2019-05-19] MEDS: HYDROcodone/APAP 7.5/325 MG 1 TAB PO PRN (17:00)
--- NOTE | 2019-05-19 17:01 | NUR ---
ADMINISTERED SCHEDULED LACTULOSE AND PRN NORCO FOR 7/10 LEFT HAND PAIN. PT TOLERATED WELL. WILL CONTINUE TO MONITOR.
--- NOTE | 2019-05-19 19:05 | NUR ---
ENDORSED PT TO RN JANUARY FOR CONTINUITY OF CARE. PT STABLE.
--- NOTE | 2019-05-19 19:06 | NUR ---
RECEIVED REPORT FROM AM NURSE. PT SITTING UP IN BED WATCHING TV. A&O X 4. ABLE TO ANSWER QUESTIONS AND FOLLOW COMMANDS. VISIBLE CHEST RISE AND FALL ON ROOM AIR, NO DISTRESS NOTED. RIGHT AC 20G INTACT AND INFUSING WELL. ON SEIZURE PRECAUTIONS, SIDE RAILS PADDED. SAFETY MEASURES IN PLACE. NO C/O DISCOMFORT. CALL LIGHT WITHIN REACH.
--- NOTE | 2019-05-19 20:26 | NUR ---
MEDICATION ADMINISTER. PT TOLERATED WELL.
--- NOTE | 2019-05-19 22:20 | NUR ---
ROUNDED ON PT. PT RESTING. BREATHING EQUAL AND UNLABORED. CALL LIGHT WITHIN REACH.
[2019-05-20] VITALS: BP 119/74
--- NOTE | 2019-05-20 00:30 | NUR ---
COMPOUNDING PHARMACY TECHNICIAN REPORTED THAT PT STATES "A MAN CAME INTO MY ROOM AND MESSED WITH MY IV". WENT TO SEE PT AND REASSURED THAT HIS IV WAS OKAY AND WORKING PROPERLY.
[2019-05-20] MEDS: VANCOMYCIN 1,250 MG in DEXTROSE 5% 250 ML IV SCH (01:52)
--- NOTE | 2019-05-20 01:52 | NUR ---
SADI ANDREW. PT IN BED AWAKE. NO C/O DISCOMFORT. PT ASKED IF IV WAS WORKING. PT REASSURED IV IS WORKING AND SHOWED PT THAT IT IS CONNECTED TO IV SITE IN ARM.
[2019-05-20] MEDS: PIPERACILLIN/TAZOBACTAM 3.375 GM in DEXTROSE 5% 50 ML IV SCH (04:43)
--- NOTE | 2019-05-20 04:43 | NUR ---
WENT TO [place]. PT SNAPPED IV TUBBING IN HALF AND TIED OFF EACH END OF THE IV TUBING. IV SITE STILL PATENT WITH SALINE FLUSH. STARTED NEW IV TUBING TO SALINE BAG.
[2019-05-20] MEDS: LORazepam 1 MG TAB PO SCH (04:45)
--- NOTE | 2019-05-20 06:00 | NUR ---
EVP GENERAL COUNSEL CAME TO REPORT THAT PT WAS TRYING TO RECONNECT HIS IV. WENT TO CHECK ON PT. PT STATED HE WENT TO THE BATHROOM AND HAD TO DISCONNECT THE IV. ORIENTED PT HOW TO DISCONNECT POWER PLUG TO TAKE IV POLE TO BATHROOM. PT GAVE VERBAL UNDERSTANDING.
[2019-05-20] MEDS: ALBUTEROL SULFATE/IPRATROPIU 3 ML SOL IH SCH (07:01)
--- NOTE | 2019-05-20 07:06 | NUR ---
PT STOPPED BREATHING TX AFTER 5 MIN STATING HE WANTS TO GO HOME. PT IN HIS OWN CLOTHES AT THIS TIME. PT NOT SOB AND NOT IN ANY DISTRESS. B.S CLEAR BILATERALLY.
--- NOTE | 2019-05-20 07:15 | NUR ---
RECEIVED REPORT FROM BANK SECRECY ACT OFFICER NURSE JANUARY FOR CONTINUITY OF CARE. PT STANDING IN HALLWAY IN STABLE CONDITION. IV REMOVED SITTING ON FLOOR, LUMEN INTACT. NO INJURY NOTED AT THIS TIME AT IV SITE. PT STATING HE WANTED TO LEAVE. PHYSICIAN NOTIFIED TO SPEAK TO PT AT THIS TIME.
[2019-05-20] MEDS ORDERED: THIA-34 PO (07:17)
[2019-05-20] MEDS ORDERED: LACT10SO11 PO (07:17)
[2019-05-20] MEDS ORDERED: FOLI1TAB90 PO (07:17)
[2019-05-20] MEDS ORDERED: LACT10CA PO (07:19)
[2019-05-20] MEDS ORDERED: CLIN300C2 PO (07:19)
--- NOTE | 2019-05-20 07:55 | NUR ---
GAVE DISCHARGE INSTRUCTIONS. PT VERBALIZED UNDERSTANDING OF INSTRUCTIONS. ID BAND REMOVED. PT REFUSED WHEELCHAIR. PT ESCORTED TO LOBBY WHERE FAMILY WAS WAITING WITH VEHICLE. PT IN STABLE CONDITION.
[2019-05-20 08:00] LABS: BASOPHILS # (AUTO) 0.1 K/uL (0.00-0.22); BASOPHILS % (AUTO) 1.4 % (0.0-2.0); EOSINOPHILS # (AUTO) 0.2 K/uL (0-0.4); EOSINOPHILS % (AUTO) 3.6 % (0.0-4.0); HEMATOCRIT 31.8 % (36-52); HEMOGLOBIN 10.6 g/dL (12.0-18.0); LYMPHOCYTES # (AUTO) 1.6 K/uL (2.0-11.5); LYMPHOCYTES % (AUTO) 27.5 % (20.5-51.1); MEAN CORPUSCULAR HEMOGLOBIN 35 pg (27-31); MEAN CORPUSCULAR HGB CONC 33 g/dL (33-37); MONOCYTES # (AUTO) 0.6 K/uL (0.8-1.0); MONOCYTES % (AUTO) 10.5 % (1.7-9.3); NEUTROPHILS # (AUTO) 3.2 K/uL (1.8-7.7); PLATELET COUNT (AUTO) 60 K/uL (140-450); RED BLOOD CELL COUNT(AUTO) 3.06 MIL/uL (4.20-6.10); RED CELL DISTRIBUTION WIDTH 17.6 % (11.6-13.7); WHITE BLOOD COUNT (AUTO) 5.6 K/uL (4.8-10.8)
[2019-05-20 08:41] LABS: MAGNESIUM 1.2 mg/dL (1.8-2.4)
[2019-05-20 08:44] LABS: ANION GAP 9.8 (8-16); CARBON DIOXIDE 24.8 mmol/L (21-32); CREATININE 0.8 mg/dL (0.7-1.3); POTASSIUM 3.6 mmol/L (3.5-5.1)
[2019-05-20] MEDS ORDERED: MAG400 PO (13:41)
== END 2019-05-20 07:15 | disposition home or self-care (01) | DRG 383 ==
LOC: MED 12:18 → MTU 14:51
PROVIDERS: ADMIT General Practice; ATTEND General Practice
PROC: 5A09357 Assistance with Respiratory Ventilation, Less than 24 Consecutive Hours, Continuous Positive Airway Pressure (ICD-10-PCS; principal; 2019-05-17)
DX: L03.114 Cellulitis of left upper limb (principal); E43 Unspecified severe protein-calorie malnutrition; G93.41 Metabolic encephalopathy; D61.818 Other pancytopenia; D69.59 Other secondary thrombocytopenia; D68.9 Coagulation defect, unspecified; K76.6 Portal hypertension; E83.42 Hypomagnesemia; K72.90 Hepatic failure, unspecified without coma; K74.60 Unspecified cirrhosis of liver; E87.6 Hypokalemia; F10.129 Alcohol abuse with intoxication, unspecified; Y90.8 Blood alcohol level of 240 mg/100 ml or more; K21.9 Gastro-esophageal reflux disease without esophagitis; K70.9 Alcoholic liver disease, unspecified; D64.9 Anemia, unspecified; Z68.29 Body mass index [BMI] 29.0-29.9, adult; Z91.19 Patient's noncompliance with other medical treatment and regimen; Z83.3 Family history of diabetes mellitus; Z82.49 Family history of ischemic heart disease and other diseases of the circulatory system
CPT/HCPCS: 36415; 71045; 73080; 73130; 76700; 76881; 80048; 80053; 80202; 80305; 81001; 82140; 82150; 82550; 82607; 82728; 82746; 82948; 82977; 83036; 83540; 83605; 83690; 83735; 83880; 84100; 84439; 84443; 84484; 85025; 85045; 85610; 85651; 85730; 86140; 87040; 87081; 87086; 90471; 90715; 93971; 94640; 94660; 96365; 97116; 97161-GP; 97530; 99285; G0482; J0690; J2543; J3370; J3475; J3490; J7030; J7060; J7620; Q0092

== ENCOUNTER 2019-05-28 13:01 | Emergency (ER) | payer MEDICAID ==
[~2019-05-28] VITALS: Ht 170.2 cm; Wt 90.7 kg
[~2019-05-28 13:01] MED LIST changes: -AMOX500C25 PO; -CLAR500T PO; +CLIN300C2 PO; +FOLI1TAB90 PO; +LACT10CA PO; +MAG400 PO; +THIA-34 PO
--- NOTE | 2019-05-28 13:01 | NUR ---
Patient BIBA BLS, transferred to bed 7. RN evaluating patient at bedside.
--- NOTE | 2019-05-28 13:10 | NUR ---
BIBA C/O LT HAND PAIN. PT HAS 10/10 LT HAND PAIN, + SWELLING, + CMS. PT ALREADY TAKING ABX FOR LT HAND. +BLE EDEMEA. ADMITS TO ETOH ERALIER TODAY. EMS STARTED 18G IV IN RT WRIST.PATIENT STATES PAIN OF 10/10 AT THIS TIME; PATIENT POSITIONED FOR COMFORT; HOB ELEVATED; BEDRAILS UP X2; BED DOWN. ER MD MADE AWARE OF PT STATUS.
[2019-05-28 13:12] VITALS: BP 124/70
[2019-05-28] MEDS ORDERED: KETOROLAC 30 MG/ML VIAL IVP ONE (13:20)
[2019-05-28] MEDS ORDERED: NACL 0.9% 1,000 ML IV ONE (13:20)
--- NOTE | 2019-05-28 13:23 | NUR ---
Dr. Gonzalez evaluating patient at bedside.
[2019-05-28 15:12] VITALS: BP 123/80
--- NOTE | 2019-05-28 15:12 | NUR ---
Patient discharged with v/s stable. Written and verbal after care instructions given and explained. Patient alert, oriented and verbalized understanding of instructions. Ambulatory with steady gait. All questions addressed prior to discharge. ID band removed. Patient advised to follow up with PMD. Rx of KEFLEX & NAPROSYN given. Patient educated on indication of medication including possible reaction and side effects. Opportunity to ask questions provided and answered.
== END 2019-05-28 15:12 | disposition home or self-care (01) ==
LOC: MED 13:01
DX: L03.114 Cellulitis of left upper limb (principal); I10 Essential (primary) hypertension; Z79.899 Other long term (current) drug therapy
CPT/HCPCS: 29125; 73130; 96374; 99283; J1885; J7030; Q0092

== ENCOUNTER 2019-06-08 00:20 | Emergency (ER) | payer MEDICAID ==
[~2019-06-08] VITALS: Ht 167.6 cm; Wt 88.9 kg
[2019-06-08 00:20] VITALS: BP 129/74
--- NOTE | 2019-06-08 00:20 | NUR ---
TO CHAIR E BROUGHT IN BY FLOYD SHULTZ WITH C/O REDNESS SWELLING PAIN ON HIS LEFT HAND FOR 3 DAYS FOR 3 WEEKS, PATIENT ETOH
[2019-06-08 00:48] VITALS: BP 129/74
--- NOTE | 2019-06-08 00:48 | NUR ---
PATIENT BIB [employer]. PATIENT EXAMINED BY DR. TREVIÑO. PATIENT MEDICALLY CLEARED AND RELEASED IN CUSTODY IN STABLE CONDITION. ORIGINAL PRE-BOOK FORM GIVEN TO [employer] OFFICER .
== END 2019-06-08 00:48 ==
LOC: MED 00:20
DX: L03.114 Cellulitis of left upper limb (principal); F17.200 Nicotine dependence, unspecified, uncomplicated; Z79.899 Other long term (current) drug therapy; Z02.89 Encounter for other administrative examinations
CPT/HCPCS: 99283